=== PATIENT | female | born 1955 | race Caucasian/White ===

== ENCOUNTER → 2019-11-03 | Outpatient (CLI) | payer OTHER ==
--- NOTE | 2019-11-03 20:35 | CONS ---
CONSULTATION DATE OF SERVICE: 11/03/2019 This patient is a 64-year-old lady who [facility] for snoring, awakenings from sleep and sleepiness during the day. HISTORY OF PRESENT ILLNESS/SLEEP-WAKE EVALUATION: Patient's usual sleep schedule is from around 10 p.m. until 6 to 7 a.m. Usually no problems with falling asleep. No TV in bedroom. She sleeps on the back and stomach positions. She wakes up from sleep 2 times with one episode of nocturia. She grinds her teeth, wakes up with a dry mouth, palpitations, gasping for air, restless legs, positive history of sleeptalking. In the morning patient wakes up tired, falling asleep during the day. [place] Sleepiness Scale is 9. She may take a nap during the day, but usually she tries to avoid that; trying to prevent sleepiness by increasing her daytime activity. She is taking 2-3 cups of coffee in the first part of the day. No history of hypnagogic hallucinations at the present time. No history of sleep paralysis or cataplexy. PAST MEDICAL HISTORY: Positive for atrial fibrillation, hypothyroidism, depression. PAST SURGICAL HISTORY: Total hysterectomy, cholecystectomy, toe surgery, bilateral surgery for carpal tunnel syndrome, bilateral surgery for shoulder problems. CURRENT MEDICATIONS: Baby aspirin, Digitek, Mirapex, paroxetine, Synthroid, , calcium supplement, fish oral, multivitamins. SOCIAL HISTORY: Negative for smoking. Alcohol consumption rarely. FAMILY HISTORY: Heart problems, arthritis, snoring, acid reflux, thyroid problems, restless legs. PHYSICAL EXAMINATION: GENERAL: A pleasant lady without distress. VITAL SIGNS: BP 119/80, HR 65, RR 15, height 5 feet 4 inches. Weight 151.8, temperature 97.6, oxygen saturation at room air 96%. HEENT: PERRLA, EOMI. Evaluation of oropharynx showed tongue protrudes midline. Moderately low position of soft palate. Mallampati II to III. NECK: Supple. No JVD. Thyroid is not palpable. Neck measures 14 inches in circumference. LUNGS: Clear to percussion and to auscultation. Good air exchange. No wheezing or rhonchi. HEART: S1, S2 regular. No murmurs, gallops or rubs. ABDOMEN: ABDOMEN: Soft. No tenderness. EXTREMITIES: No clubbing or cyanosis. PHYSICAL THERAPY ASSISTANT INSTRUCTOR: Awake, alert, and oriented X3. Cranial nerves 2 to 7 intact. There is no fasciculation or atrophy. noted. No focal deficits observed. IMPRESSION: 1. Snoring, awakenings from sleep with nocturia, moderately low position of soft palate, sleepiness during the day, patient may take naps; possible obstructive sleep apnea-hypopnea syndrome. 2. Excessive daytime sleepiness. Patient is ready for naps. 3. History of atrial fibrillation. 4. History of depression. 5. History of restless legs. 6. Status post total hysterectomy. 7. Status post cholecystectomy. 8. Status post toe surgery. 9. Status post bilateral surgery for carpal tunnel syndrome. 10.Status post bilateral surgery for shoulder problems. PLAN: 1. Polysomnography for evaluation of patient's breathing during sleep. 2. CPAP/BiPAP titration if sleep study confirms obstructive sleep apnea-hypopnea syndrome. 3. Preferable position during sleep on the side. 4. No driving if patient feels any sleepiness. 5. I will see patient for follow up visit to explain results of testing and following plan. 6. Multiple sleep latency test if sleep study is negative for obstructive sleep apnea- hypopnea syndrome. Thank you very much for referring this patient for consultation. Sincerely, Tong Cedeño MD, PhD, FAASM Diplomat of [place] [employer] [place] [employer] Compensation Advisor of [facility] [place] MMODL / NADIRAN: [phone] /
== END | disposition home or self-care (01) ==
LOC: SLEEP 14:57
PROVIDERS: ATTEND Internal Medicine
DX: G47.10 Hypersomnia, unspecified (principal); R06.83 Snoring; R35.1 Nocturia; I48.91 Unspecified atrial fibrillation; E03.9 Hypothyroidism, unspecified; Z86.79 Personal history of other diseases of the circulatory system; Z86.59 Personal history of other mental and behavioral disorders; Z86.69 Personal history of other diseases of the nervous system and sense organs; Z90.710 Acquired absence of both cervix and uterus; Z90.49 Acquired absence of other specified parts of digestive tract; Z98.890 Other specified postprocedural states; Z79.82 Long term (current) use of aspirin; Z79.899 Other long term (current) drug therapy; Z79.890 Hormone replacement therapy
CPT/HCPCS: 99211

== ENCOUNTER → 2020-10-07 | Outpatient (CLI) | payer OTHER ==
--- NOTE | 2020-10-07 08:53 | MR ---
EXAMINATION TYPE: MR lumbar spine wo con DATE OF EXAM: 10/07/2020 COMPARISON: NONE HISTORY: LBP, LBE radiculopathy x 2 mos TECHNIQUE: T1 and T2 axial and sagittal images of the lumbar spine are submitted. FINDINGS: There is no abnormal signal seen within the visualized spinal cord or paraspinal soft tissu es. At L1-2 there is degenerative disc disease with disc bulging greater laterally to the left mild left- sided foraminal encroachment. No Canal stenosis. At L2-3 there is degenerative disc disease with circumferential disc bulging. Very mild bilateral for aminal encroachment but no canal stenosis or focal herniation. At L3-4 there is degenerative disc disease and broad-based disc bulging centrally. Facet arthropathy and ligamentum flavum hypertrophy noted with mild to moderate bilateral foraminal encroachment and estrellita rderline central stenosis. At L4-5 there is broad-based central disc bulging with mild effacement of thecal sac. Advanced facet arthropathy with ligamentum flavum hypertrophy and mild bilateral foraminal encroachment. Vertebral b chanel hemangioma L4. At L5-S1 there is advanced facet arthropathy. There is mild circumferential disc bulging with no raya l stenosis or foraminal encroachment. IMPRESSION: 1. Multilevel degenerative disc disease with multilevel disc bulging most pronounced at L3-4 and L4-5 . Multilevel foraminal encroachment as discussed above. 2. Left lateral disc bulging L1-L2 with mild left-sided foraminal encroachment.
== END | disposition home or self-care (01) ==
LOC: MERGE 09-27 11:15 → EDBD 09-27 11:15 → RADMRIMAIN 08:04
PROVIDERS: ATTEND Orthopaedic Surgery
DX: M51.16 Intervertebral disc disorders with radiculopathy, lumbar region (principal)
CPT/HCPCS: 72148

== ENCOUNTER → 2020-10-17 | Outpatient (CLI) | payer OTHER ==
--- NOTE | 2020-10-17 12:04 | US ---
EXAMINATION TYPE: US carotid duplex BILAT DATE OF EXAM: 10/17/2020 COMPARISON: NONE CLINICAL HISTORY: R42 Dizziness. EXAM MEASUREMENTS: RIGHT: Peak Systolic Velocity (PSV) cm/sec ----- Right CCA: 69.1 ----- Right ICA: 74.4 ----- Right ECA: 71.1 ICA/CCA ratio: 1.08 RIGHT: End Diastole cm/sec ----- Right CCA: 25.0 ----- Right ICA: 15.8 ----- Right ECA: 15.4 LEFT: Peak Systolic Velocity (PSV) cm/sec ----- Left CCA: 91.7 ----- Left ICA: 92.2 ----- Left ECA: 75.4 ICA/CCA ratio: 1.01 LEFT: End Diastole cm/sec ----- Left CCA: 32.7 ----- Left ICA: 29.3 ----- Left ECA: 12.0 VERTEBRALS (direction of flow): Right Vertebral: Antegrade Left Vertebral: Antegrade Rhythm: Normal Grayscale, color Doppler, spectral Doppler imaging performed of the carotid arteries. Waveform analys is does not show significant stenosis of the internal carotid arteries. No significant stenosis seen. No elevated velocities. IMPRESSION: No hemodynamic significant stenosis of the proximal internal carotid arteries by Doppler criteria, an indirect measurement of carotid stenosis Criteria for Assigning % of Stenosis / Diameter reduction (Estimation based on the indirect measurements of the internal carotid artery velocities (ICA PSV). 1. Normal (no stenosis)=ICA PSV < 125 cm/s: ratio < 2.0: ICA EDV<40 cm/s. 2. Less than 50% stenosis=ICA PSV < 125 cm/s: ratio < 2.0: ICA EDV<40 cm/s. 3. 50 to 69% stenosis=ICA PSV of 125 to 230 cm/s: ration 2.0 ? 4.0: ICA EDV 40-100 cm/s. 4. Greater than 70% stenosis to near occlusion= ICA PSV > 230 cm/s: ratio > 4.0: ICA EDV > 100 cm/s. 5. Near occlusion= ICA PSV velocities may be low or undetectable: variable ratio and ICA EDV. 6. Total occlusion=unable to detect flow.
--- NOTE | 2020-10-17 12:17 | US ---
EXAMINATION TYPE: US abdomen complete DATE OF EXAM: 10/17/2020 COMPARISON: NONE CLINICAL HISTORY: R10.9 Abd pain. epigastric pain EXAM MEASUREMENTS: Liver Length: 10.6 cm Gallbladder Wall: Surgically absent CBD: 0.4 cm Spleen: 9.8 cm Right Kidney: 9.8 x 4.1 x 5.4 cm Left Kidney: 10.4 x 5.6 x 4.4 cm Pancreas: wnl Liver: wnl Gallbladder: Surgically absent CBD: wnl Spleen: wnl Right Kidney: No hydronephrosis or masses seen Left Kidney: No hydronephrosis or masses seen Upper IVC: wnl Abd Aorta: wnl No evident ascites. Kidneys show normal cortical medullary differentiation. IMPRESSION: No evident abnormality. Post cholecystectomy.
== END | disposition home or self-care (01) ==
LOC: RADUSWWP 07:03
PROVIDERS: ATTEND Family Medicine
DX: R10.9 Unspecified abdominal pain (principal); R42 Dizziness and giddiness; Z90.49 Acquired absence of other specified parts of digestive tract
CPT/HCPCS: 76700; 93880

== ENCOUNTER 2020-11-07 13:11 | Day surgery (SDC) | payer OTHER ==
[2020-11-03 13:15] VITALS: BMI 27.4
[~2020-11-07 13:11] MED LIST: LACTATED RINGERS 1,000 ML IV SCH
[2020-11-07 13:46] VITALS: RESP 16; TEMP 97.9
[2020-11-07] MEDS ORDERED: LIDOCAINE 1% (10MG/ML) FOR IV START INTRADERMA ONE (13:49)
[2020-11-07] MEDS ORDERED: LACTATED RINGERS 1,000 ML IV ONE (13:50)
[2020-11-07] MEDS ORDERED: methylPREDNISolone ACETATE 40 MG/ML 1 ML VIAL ONE (13:53)
[2020-11-07] MEDS ORDERED: IOPAMIDOL M200 10 ML VIAL ONE (13:53)
[2020-11-07] MEDS ORDERED: fentaNYL (PF) 50 MCG/ML 2 ML AMP ONE (13:53)
[2020-11-07] MEDS ORDERED: MIDAZOLAM 2 MG/2 ML VIAL ONE (13:53)
--- NOTE | 2020-11-07 14:09 | P.PCN ---
Date of Procedure: 11/07/20 Procedure(s) Performed: PREOPERATIVE DIAGNOSIS: 1-Lumbar radiculopathy . 2-lumbar degenerative disc disease. 3-lumbar spondylosis with lumbar facet arthropathy POSTOPERATIVE DIAGNOSIS: Same as preoperative diagnoses. PROCEDURE 1. Transforaminal epidural steroid injection under fluoroscopic guidance at left L2-3 , L3-4 level. (Fluoroscopy images stored on file in the radiology Department ) 2. Lumbar epidurogram . ANESTHESIA: Local with 1% lidocaine 3 ml , moderate sedation with intravenous Versed 2 mg and fentanyle 50 micrograms. EBL: Minimal PROCEDURE INDICATION: The patient with low back pain and radiculopathy symptoms unresponsive to conservative treatment. PROCEDURE DESCRIPTION / TECHNIQUE: The patient was seen and identified in the preoperative area. Risks, benefits, complications, and alternatives were discussed with the patient. The patient agreed to proceed with the procedure and signed the consent. IV was started, and vital signs were stable. Patient was taken to the OR and time out was completed. The patient was placed in the prone position on procedure table and a pillow was placed under the abdomen to reduce lumbar lordosis. The lumbosacral area was prepped and draped in the usual sterile fashion. Critical pause was taken. Vital signs were closely monitored during the procedure. Conscious sedation was used during the procedure to decrease patient s anxiety. Using oblique fluoroscopy, the chin of the ``Carlos dog at left L2-3 level was identified, and the skin and deeper tissues just below was localized with 1% lidocaine. Subsequently, a 22-gauge 3.5-inch spinal needle was advanced under a tunneled view fluoroscopic guidance just underneath the chin of the `[place] dog at the left L2-3 Under lateral fluoroscopy, the needle was then advanced to the posterior border of the interforaminal space. After negative aspiration of CSF and blood and with no paresthesias, 1 mL Isovue 200 contrast dye was injected excellent epidurogram and outlining of the nerve root Subsequently, 3 mL of block solution containing 40 mg Depo-Medrol and 2 mL of 0.9% normal saline PF was injected. Needle was removed and the same procedure was repeated at the left L3-4 level (s). At the end of the procedure, skin was cleansed, and bandages were applied. COMPLICATIONS:none DISPOSITION / PLANS: The patient was placed in a supine position and transferred to the recovery area in a stable condition for observation. There was no evidence of lower extremity motor or sensory deficit after the procedure. Patient was discharged from the recovery room after meeting discharge criteria. Home discharge instructions were given to the patient by the staff. The patient was reexamined prior to discharge.
[2020-11-07 14:14] VITALS: PULSE 61
--- NOTE | 2020-11-07 14:18 | FL ---
EXAMINATION TYPE: FL guided pain mgmt statistic DATE OF EXAM: 11/07/2020 HISTORY: Fluoroscopy time 9 seconds of fluoroscopy provided. IMPRESSION: 1. Fluoroscopy time.
[2020-11-07 14:32] VITALS: BP 105/69
[2020-11-07] MEDS ORDERED: IV FLUID CONTINUATION 1,000 ML IV ONE (14:34)
== END 2020-11-07 14:49 | disposition home or self-care (01) ==
LOC: ORPAIN 13:11
PROVIDERS: ATTEND Specialist
DX: M51.16 Intervertebral disc disorders with radiculopathy, lumbar region (principal); M47.26 Other spondylosis with radiculopathy, lumbar region
CPT/HCPCS: 64483; 64484; J2250; J1030; J3010; Q9966; 99152

== ENCOUNTER → 2020-12-26 | Day surgery (SDC) | payer OTHER ==
[2020-12-22 13:09] VITALS: BMI 27.4
[~2020-12-26] MED LIST changes: -LACTATED RINGERS 1,000 ML IV SCH; +LIDOCAINE 1% INJ 10MG/ML (20 ML MDV) SQ ONE
[2020-12-26 11:53] VITALS: RESP 16; TEMP 98.1
[2020-12-26 13:04] VITALS: BP 129/72; PULSE 60
[2020-12-26 13:50] LABS: Basophils # (A) 0.1 k/uL (0-0.2); Basophils % (A) 1 %; Eosinophils # (A) 0.2 k/uL (0-0.7); Eosinophils % (A) 3 %; HCT 42.4 % (34.0-46.0); HGB 14.9 gm/dL (11.4-16.0); Lymphocytes # (A) 2.7 k/uL (1.0-4.8); Lymphocytes % (A) 40 %; MCH 30.9 pg (25.0-35.0); MCV 88.1 fL (80.0-100.0); Mean Platelet Volume 7.5; Monocytes # (A) 0.4 k/uL (0-1.0); Monocytes % (A) 6 %; Neutrophils # (A) 3.3 k/uL (1.3-7.7); Neutrophils % (A) 49 %; Platelet Count 248 k/uL (150-450); RBC 4.82 m/uL (3.80-5.40); RDW 12.4 % (11.5-15.5); WBC 6.7 k/uL (3.8-10.6)
[2020-12-26 14:03] LABS: African American GFR (CKD) >90 (>60 ml/min/1.73 sqM); Anion Gap 6 mmol/L; Blood Urea Nitrogen 20 mg/dL (7-17); C Reactive Protein 11.2 mg/L (<10.0); Carbon Dioxide 27 mmol/L (22-30); Chloride 104 mmol/L (98-107); Creatine Kinase 63 U/L (30-135); Non-African American GFR(CKD) 85 (>60 ml/min/1.73 sqM); Sodium 137 mmol/L (137-145)
[2020-12-26 14:18] LABS: Potassium 4.2 mmol/L (3.5-5.1)
[2020-12-26 15:04] LABS: Erythrocyte Sedimentation Rate 7 mm/hr (0-20)
--- NOTE | 2020-12-26 15:06 | IR ---
EXAMINATION TYPE: IR cvc insert >=5 years DATE OF EXAM: 12/26/2020 COMPARISON: NONE CLINICAL HISTORY: Infection Needs long-term intravenous access for antibiotics. PROCEDURE: Hand hygiene obtained with soap and water and alcohol-based hand rub. After informed consent, the skin overlying the left basilic vein was localized with ultrasound and no celia to be compressible and patent. An ultrasound image was obtained and submitted on the patient's c murray. The overlying skin was prepped and draped and Lidocaine was used for local anesthesia. A skin marley was made with a scalpel. Access was gained to the vein under ultrasound guidance with a 21 gau ge needle and a 0.018 inch wire was advanced. Access site was dilated with Peel-Away sheath and cath eter tailored to the appropriate length and advanced such that the distal tip is at the cavoatrial ju nction. Spot image was obtained verifying placement. Catheter was fixed to the skin and a sterile d ressing was placed following hemostasis. Catheter was aspirated and flushed with saline. Patient wa s discharged in stable condition without complication. Maximal barrier technique is utilized. Ultras ound image is documented on the chart. Ultrasound used with sterile technique. Fluoro time and fluoroscopic images submitted to document procedure: 25 intraoperative images documen t the procedure, 0.1 minutes fluoroscopy time IMPRESSION: STATUS POST ULTRASOUND AND FLUOROSCOPIC GUIDED PICC LINE PLACEMENT, READY FOR USE. THIS PROCEDURE WAS PERFORMED BY THE UNDERSIGNED.
== END ==
LOC: CATHCVL 11:32
PROVIDERS: ATTEND Radiology Diagnostic Radiology
DX: M86.8X7 Other osteomyelitis, ankle and foot (principal); I48.91 Unspecified atrial fibrillation; Z80.9 Family history of malignant neoplasm, unspecified; I49.9 Cardiac arrhythmia, unspecified; M19.90 Unspecified osteoarthritis, unspecified site; F32.9 Major depressive disorder, single episode, unspecified; E03.9 Hypothyroidism, unspecified; Z79.890 Hormone replacement therapy; Z79.899 Other long term (current) drug therapy; Z79.82 Long term (current) use of aspirin
CPT/HCPCS: 36573; 80051; 85652; 82565; 82550; 84520; 85025; 86140; C1751; C1769; J2001; J0878

== ENCOUNTER → 2021-01-03 | Outpatient (CLI) | payer OTHER ==
[2021-01-03 10:11] VITALS: BP 87/58; PULSE 59; RESP 16; TEMP 97.6
--- NOTE | 2021-01-03 10:37 | P.PN ---
Subjective Progress Note Date: 01/03/21 This is 65 years old female with a chronic history of severe low back pain with radiation to the lower extremity, she is diagnosed with lumbar radiculopathy lumbar bulging disc disease, lumbar spondylosis with lumbar facet arthropathy, previously we have done left transforaminal epidural steroid injection, and she is currently complaining of severe localized low back pain with radiation to the buttock area bilaterally, it's more prominent on the left side, the pain increased with any activity or sitting or standing, and changing position, it's constant, she denies any motor or sensory deficit, she denies any change in the bowel movement or urination. Objective - Vital Signs Vital signs: Vital Signs Temp 97.6 F 01/03/21 10:07 Pulse 59 L 01/03/21 10:07 Resp 16 01/03/21 10:07 BP 87/58 01/03/21 10:07 Pulse Ox 93 L 01/03/21 10:07 - Exam Physical Examinations : -Constitutiona : Cooperative , not in acute distress . -HEENT : nech : supple , no Lymphadenopathy , normal thyroid size . : eyes : no ptosis , no icterus, no photophobia . - neurologic : Cranial nerve II to XII intact , no focal neurological deffecit . -psychatric : alert , oriented X 3 , appropriate affect , intact judgment and insight . -Lymphatic : no Lymphadenopathy . - musculoskeltal : Lumber spine moter stegnth lower extremities ,thigh and legs 5/5 Right side , 5/5 Left side deep tendon reflexes : normal Knee Jerk , normal ankle Jerk lumber facet Loading Test =positive Right , positive Left Range of motion of the lumbar spine Flexion 60 degrees, extension 30 degrees strait leg raising test = negative bilaterally Fabere test= negative bilaterally . Sever tenderness over the Sacroiliac joint on the Right , and Left sides Gaenslen test= positive right ,and positive left . Seated flexion test= positive right ,and positive Left . Distraction test= positive bilaterally Sacroiliac compression test= positive bilaterally. MRI of the lumbar spine multilevel lumbar bulging disc disease multilevel lumbar Assessment and Plan Plan: Assessment and plan=1-bilateral sacroiliitis. 2-lumbar degenerative disc disease. 3-lumbar spondylosis and lumbar facet arthropathy without myelopathy. 4-umber radiculopathy. Patient could benefit from bilateral sacroiliac joint steroid injection under fluoroscopy guidance. - PQRS measures = - Patient's medications are documented in the chart. -Tobacco use is negative and counseling.Given. -Patient's has not received pneumococcal vaccine. -Advanced care planning discussed, patient not eligible. -Opiate contract not signed. -Pain positive and follow-up visit/procedure is scheduled. -Patient's blood pressure measured [ 120/87 ] , and documented in the record ,and patient will follow up with the primary care. -Patient's weight was measured and body mass index [ ] above the normal limits and counseling was done. and patient instructed to follow-up with the primary care physician. -Patient was not identified as an unhealthy alcohol user Time with Patient: Less than 30
== END ==
LOC: PNWHC3 09:18
PROVIDERS: ATTEND Specialist
DX: M47.26 Other spondylosis with radiculopathy, lumbar region (principal); M51.36 Other intervertebral disc degeneration, lumbar region; M46.1 Sacroiliitis, not elsewhere classified
CPT/HCPCS: 99211

== ENCOUNTER 2021-03-06 11:08 | Day surgery (SDC) | payer OTHER ==
[2021-03-02 11:45] VITALS: BMI 27.4
[~2021-03-06 11:08] MED LIST changes: +LACTATED RINGERS 1,000 ML IV SCH; -LIDOCAINE 1% INJ 10MG/ML (20 ML MDV) SQ ONE
[2021-03-06 11:31] VITALS: TEMP 97
[2021-03-06] MEDS ORDERED: ROPIVACAINE 5MG/ML 20ML VIAL ONE (12:30)
[2021-03-06] MEDS ORDERED: fentaNYL (PF) 50 MCG/ML 2 ML AMP ONE (12:30)
[2021-03-06] MEDS ORDERED: MIDAZOLAM 2 MG/2 ML VIAL ONE (12:30)
[2021-03-06] MEDS ORDERED: methylPREDNISolone ACETATE 40 MG/ML 1 ML VIAL ONE (12:30)
--- NOTE | 2021-03-06 12:43 | P.PCN ---
Date of Procedure: 03/06/21 Procedure(s) Performed: Procedure= bilateral sacroiliac joints steroid injection under fluoroscopy guidance (fluoroscopy image stored on file in the radiology Department ) Preoperative diagnosis= 1-sacroiliitis 2-lumbar degenerative disc disease 3- lumbar spondylosis with facet arthropathy. 4-lumbar radiculopathy Postoperative diagnosis=Same as preop Diagnosis . Complication = none Condition= stable Anesthesia= moderate sedation with intravenous Versed 2 mg , and fentanyl 100 micrograms . Indication for the procedure= patient complaining of low back pain , examination was positive for severe tenderness over the sacroiliac joints bilaterally and patient diagnosed with sacroiliitis, for this reason she was good candidate for sacroiliac joint steroid injection. Description of the procedure= procedure risk and benefits discussed with the patient, including but not limited, risk of infection and bleeding, and ALLERGIC reaction to the medication and not complete pain relief and patient agreed with the preceding patient taken to the operating room, placed in prone position or standard monitors applied to the patient then after induction of anesthesia back prepped with chlorhexidine 3 times , Then under strict sterile technique, first I did the right sacroiliac joint the which was identified under fluoroscopy guidance been local infiltration of the skin and subcu interstitial with lidocaine 1% then 22-gauge Quincke Needle advanced slowly under fluoroscopy and placed in the right sacroiliac joint needle placement confirmed with AP and oblique and lateral view and after appropriate needle placement confirmed and after negative aspiration, or heme , then Ropivacaine 0.5% 3 mL, and 40 mg of Depo-Medrol mixed together and injected in the right sacroiliac joint after negative aspiration patient tolerated the procedure well without any complication. Then the left sacroiliac joint steroid injection done under strict sterile technique local infiltration of the skin and subcu interstitial at the location of the left sacroiliac joint then a 22-gauge Quincke Needle advanced slowly under fluoroscopy time placed in the left sacroiliac joint, needle placement confirmed with AP and oblique and lateral view then after appropriate needle placement confirmed and after negative aspiration 0.5% ropivacaine 3 mL and 40 mg of Depo-Medrol injected in the left sacroiliac joint after negative aspiration patient tolerated the procedure well that any complications and she will follow up in clinic 3 weeks
[2021-03-06] MEDS ORDERED: IV FLUID CONTINUATION 1,000 ML IV ONE (12:46)
[2021-03-06 12:50] VITALS: RESP 16
--- NOTE | 2021-03-06 13:13 | FL ---
EXAMINATION TYPE: FL guided pain mgmt statistic DATE OF EXAM: 03/06/2021 HISTORY: Fluoroscopy time 3 seconds of fluoroscopy provided. IMPRESSION: 1. Fluoroscopy time.
[2021-03-06 13:49] VITALS: BP 101/65; PULSE 53
== END 2021-03-06 13:50 | disposition home or self-care (01) ==
LOC: ORPAIN 11:08
PROVIDERS: ATTEND Specialist
DX: M46.1 Sacroiliitis, not elsewhere classified (principal); M51.16 Intervertebral disc disorders with radiculopathy, lumbar region; M47.26 Other spondylosis with radiculopathy, lumbar region; Z90.710 Acquired absence of both cervix and uterus; Z79.82 Long term (current) use of aspirin
CPT/HCPCS: 27096; J2250; J1030; J3010; J2795

== ENCOUNTER → 2021-04-23 | Outpatient (CLI) | payer OTHER ==
[2021-04-23 07:45] VITALS: BP 109/75; PULSE 65; RESP 18; TEMP 97.8
--- NOTE | 2021-04-23 08:21 | P.PN ---
Subjective Progress Note Date: 04/23/21 This is a 65-year-old lady with history of chronic lower back pain mostly on the left side today with radiation to the posterior aspect of the left thigh to the midthigh area. The patient denies any paresthesia in the lower extremities or any weakness. Her pain has been getting worse lately. She had sacroiliac joint steroid injection bilaterally which gave her very good relief of pain at least 80% as she states. At this time she feels pain only on the left side of her lower back. Patient denies new-onset weakness, bowel/bladder incontinence, or any other signs or symptoms of cauda equina syndrome. There are no signs of acute intoxication, and no indications of medication diversion or overuse. In addition to above, 13-point review of systems is also negative for chest pain, shortness of breath, changes in vision, changes in hearing, new onset weakness, abdominal pain, diarrhea, extreme fatigue, malaise, fever, skin changes, homicidal or suicidal ideation, or bowel or bladder incontinence. Vital Signs: Reviewed in EMR Gen: AAOx3, NAD HEENT: PERRLA,hearing grossly normal Pulm: resp unlabored Neck: supple, trachea midline Neuro exam of the lower extremities: Normal muscle strength in the lower extremities bilaterally Straight leg raising test: Negative bilaterally Tashi's test: Range of motion of the lumbar spine: Facet loading test: Tenderness in the paravertebral musculature: Positive tenderness around the left sacroiliac joint Neuro: CN II-XII grossly intact, Imaging: Reviewed in EMR/chart Assessment: Left sacroiliitis Lumbar DDD Lumbar spondylosis without myelopathy Plan: 1. Explanation: Opioid and psychological risk scores were reviewed. Diagnoses, prognoses, and multiple treatment options including but not limited to physical therapy, interventional therapies, adjuvant medical therapies, narcotic medication therapies, and surgery were discussed with the patient and all questions were answered to the patient's satisfaction. 2. Opioid agreement: Signed with the patient and the patient is warned not to use opioids while driving or before driving and not to combine opioids with benzodiazepines or alcohol. 3. Counseling: The patient was counseled extensively on SMOKING CESSATION, BODY MASS INDEX, EXERCISE. Specifically, the patient was instructed regarding the importance of smoking cessation, obesity, and exercise in the context of both chronic pain and overall health. 4. Procedures: Scheduled for the second sacroiliac joint steroid injection on the left side. 5. Consultations: None 6. Investigations: None 7. Medications: None prescribed 8. Disposition: Return to clinic in 4 weeks and to the above-mentioned procedure as soon as possible 9. Maps were reviewed and were appropriate. Objective - Vital Signs Vital signs: Vital Signs Temp 97.8 F 04/23/21 07:41 Pulse 65 04/23/21 07:41 Resp 18 04/23/21 07:41 BP 109/75 04/23/21 07:41 Pulse Ox 99 04/23/21 07:41 Intake & Output 04/22/21 04/23/21 04/23/21 18:59 06:59 18:59 Weight 72.575 kg
== END ==
LOC: PNWHC3 07:26
PROVIDERS: ATTEND Anesthesiology
DX: M46.1 Sacroiliitis, not elsewhere classified (principal); M47.816 Spondylosis without myelopathy or radiculopathy, lumbar region; M51.36 Other intervertebral disc degeneration, lumbar region
CPT/HCPCS: 99211

== ENCOUNTER 2021-05-01 06:47 | Day surgery (SDC) | payer OTHER ==
[2021-05-01 07:24] VITALS: TEMP 97.3
[2021-05-01] MEDS ORDERED: LACTATED RINGERS 1,000 ML IV ONE (07:27)
[2021-05-01] MEDS ORDERED: ROPIVACAINE 5MG/ML 20ML VIAL ONE (07:53)
[2021-05-01] MEDS ORDERED: TRIAMCINOLONE ACETONIDE 40 MG/ML 1 ML VIAL ONE (07:53)
[2021-05-01] MEDS ORDERED: MIDAZOLAM 2 MG/2 ML VIAL ONE (07:53)
[2021-05-01] MEDS ORDERED: fentaNYL (PF) 50 MCG/ML 2 ML AMP ONE (07:53)
--- NOTE | 2021-05-01 08:05 | P.PCN ---
Date of Procedure: 05/01/21 Surgeon: Kinjal Velásquez Pathology: none sent Condition: stable Disposition: PACU Description of Procedure: Preoperative diagnoses= sacroiliac joint dysfunction and sacroiliitis on the le ft side Postoperative diagnoses= same as preoperative diagnosis. Procedure= Left sacroiliac joint steroid injection under fluoroscopic guidance. Anesthesia= local anesthesia with lidocaine 1% and IV moderate conscious sedation with fentanyl and Versed Estimated blood loss=minimal. Procedure indication= the patient had a history of severe chronic low back pain, diagnosed with sacroiliitis and lumbar sacral facet arthropathy unresponsive to conservative treatment. Procedure description= the patient was seen and identified in the preoperative holding area, risks and benefits and alternative of the procedure and possible complications discussed with the patient, patient signed the consent. an IV was started, and vital signs were monitored and were stable throughout the procedure, patient was placed in the prone position or table and the lumbosacral area was prepped and draped with a sterile fashion, vital signs were closely monitored during the procedure.The left sacroiliac joint was identified on the AP view of fluoroscopy then the C-arm was tilted to the contralateral oblique position to superimpose the anterior and posterior joint lines on each other and to have a unified joint line with the target point at the inferior one third of this line. I used 22-gauge 3-1/2 inch Quincke spinal needle for this procedure and after getting into the sacroiliac joint I injected 40 mg of Kenalog +2 MLS of Ropivacaine 0.5%. Patient tolerated the procedure well without any complication, The patient returned to supine position after the back was cleaned and a Band- Aid applied, the patient transported to recovery room in stable condition and he was monitored for 30 minutes before she was discharged home in stable condition . patient will follow up with the pain clinic in a few weeks. A copy of the needle placement was saved to the C-arm machine.
[2021-05-01] MEDS ORDERED: IV FLUID CONTINUATION 1,000 ML IV ONE ×2 (08:10)
[2021-05-01 08:14] VITALS: PULSE 55
[2021-05-01 08:53] VITALS: BP 100/66; RESP 18
--- NOTE | 2021-05-01 10:08 | FL ---
EXAMINATION TYPE: FL guided pain mgmt statistic DATE OF EXAM: 05/01/2021 HISTORY: Fluoroscopy time 6 seconds of fluoroscopy provided. IMPRESSION: 1. Fluoroscopy time.
== END 2021-05-01 09:05 | disposition home or self-care (01) ==
LOC: ORPAIN 06:47
PROVIDERS: ATTEND Anesthesiology
DX: G89.29 Other chronic pain (principal); M46.1 Sacroiliitis, not elsewhere classified; M53.3 Sacrococcygeal disorders, not elsewhere classified; I48.91 Unspecified atrial fibrillation; Z79.82 Long term (current) use of aspirin; Z90.710 Acquired absence of both cervix and uterus
CPT/HCPCS: 27096; J2250; J3301; J3010; J2795

== ENCOUNTER → 2021-05-28 | Outpatient (CLI) | payer OTHER ==
[2021-05-28 13:57] VITALS: BP 104/72; PULSE 62; RESP 18; TEMP 98.3
--- NOTE | 2021-05-28 14:07 | P.PAINPG ---
Subjective Progress Note Date: 05/28/21 This is a 65-year-old lady with history of chronic lower back pain mostly on the left side today with radiation to the posterior aspect of the left thigh to the midthigh area. The patient denies any paresthesia in the lower extremities or any weakness. We have been managing her with sacroiliac joint injections. In the past she was getting about bilaterally which is giving her very good pain relief in the form of at least 80%. In the last visit she mentioned that there is pain on her left side only and we repeated a sacroiliac joint injection on the left side. Patient notes that she is getting great relief from her procedures. She still experiences some pain in her left lower extremity and back but overall this is manageable. She'll follow up as needed. Patient denies new-onset weakness, bowel/bladder incontinence, or any other signs or symptoms of cauda equina syndrome. There are no signs of acute intoxication, and no indications of medication diversion or overuse. In addition to above, 13-point review of systems is also negative for chest pain, shortness of breath, changes in vision, changes in hearing, new onset weakness, abdominal pain, diarrhea, extreme fatigue, malaise, fever, skin changes, homicidal or suicidal ideation, or bowel or bladder incontinence. Vital Signs: Reviewed in EMR Gen: AAOx3, NAD HEENT: PERRLA,hearing grossly normal Pulm: resp unlabored Neck: supple, trachea midline Neuro exam of the lower extremities: Normal muscle strength in the lower extremities bilaterally Straight leg raising test: Negative bilaterally Tenderness in the paravertebral musculature: Positive tenderness around the left sacroiliac joint Neuro: CN II-XII grossly intact, Imaging: Reviewed in EMR/chart Assessment: Left sacroiliitis Lumbar DDD Lumbar spondylosis without myelopathy Plan: She will follow up as needed for injections in the future. She is has had 3 steroid injections this year so we discussed limiting her injections. She is understanding. I have spent 25 minutes on patient care today. The time was used to review the medical records including relevant urine studies and prescription history, review of the available imaging, evaluation and examination of the patient, coordination of care with the medical staff and if applicable referring physicians, as well as creation of the medical record.. PQRS Measure Charge Sheet PQRS Narrative: Pain Intensity [Back] 4 Home Medications: Ambulatory Orders Aspirin [Adult Low Dose Aspirin EC] 81 mg PO DAILY 11/03/20 Estradiol [Estrace] 1 mg PO DAILY 11/03/20 Levothyroxine Sodium [Synthroid] 50 mcg PO DAILY 11/03/20 Metoprolol Succinate (ER) [Toprol Xl] 25 mg PO DAILY 11/03/20 Multivitamins, Thera [Multivitamin (formulary)] 1 tab PO DAILY 11/03/20 [place]-3 Fatty Acids/Fish Oil [Fish Oil 1,000 mg Softgel] 1 each PO DAILY 11/03/20 PARoxetine HCL 20 mg PO DAILY 11/03/20 Pramipexole [Mirapex] 0.5 mg PO HS 11/03/20 Controlled Substance Measures - Controlled Substance Measures Is patient prescribed a controlled substance at discharge?: No
== END ==
LOC: PNWHC3 13:33
PROVIDERS: ATTEND Anesthesiology
DX: M46.1 Sacroiliitis, not elsewhere classified (principal); M51.36 Other intervertebral disc degeneration, lumbar region; M47.816 Spondylosis without myelopathy or radiculopathy, lumbar region
CPT/HCPCS: 99211

== ENCOUNTER → 2021-06-26 | Outpatient (CLI) | payer OTHER ==
--- NOTE | 2021-06-28 11:43 | MM ---
Reason for exam: screening (asymptomatic). Last mammogram was performed 1 year ago. History: Patient is postmenopausal. Family history of breast cancer in mother at age 40 and breast cancer in 2 maternal aunts. Benign excisional biopsy of the right breast, 1979. Took hormonal contraceptives for 2 years. Taking estrogen beginning at age 53. Physical Findings: A clinical breast exam by your physician is recommended on an annual basis and results should be correlated with mammographic findings. MG Screening Mammo w CAD Bilateral CC and MLO view(s) were taken. Prior study comparison: June 16, 2020, mammogram, performed at [facility]. June 07, 2019, mammogram, performed at [facility]. The breast tissue is heterogeneously dense. This may lower the sensitivity of mammography. No significant changes when compared with prior studies. ASSESSMENT: Benign, BI-RAD 2 RECOMMENDATION: Routine screening mammogram of both breasts in 1 year.
== END | disposition home or self-care (01) ==
LOC: RADMAMWWP 15:12
PROVIDERS: ATTEND Obstetrics & Gynecology
DX: Z12.31 Encounter for screening mammogram for malignant neoplasm of breast (principal)
CPT/HCPCS: 77067

== ENCOUNTER 2021-08-02 06:27 | Day surgery (SDC) | payer OTHER ==
[2021-07-31 16:31] VITALS: BMI 27.4
[2021-08-02 07:33] VITALS: TEMP 96.9
[2021-08-02] MEDS ORDERED: TRIAMCINOLONE ACETONIDE 40 MG/ML 1 ML VIAL ONE (08:13)
[2021-08-02] MEDS ORDERED: ROPIVACAINE 5MG/ML 20ML VIAL ONE (08:13)
[2021-08-02] MEDS ORDERED: MIDAZOLAM 2 MG/2 ML VIAL ONE (08:13)
--- NOTE | 2021-08-02 08:28 | P.PCN ---
Date of Procedure: 08/02/21 Surgeon: Kinjal Velásquez Pathology: none sent Condition: stable Disposition: PACU Description of Procedure: PREOPERATIVE DIAGNOSIS : 1- Lumbar spondylosis with Facet Arthropathy without myelopathy . 2- Lumber degenerative disc disease POSTOPERATIVE DIAGNOSIS: 1- Lumbar spondylosis with Facet Arthropathy without myelopathy . 2- Lumber degenerative disc disease PROCEDURE: Diagnostic left L4 -5 , and L5-S1 medial branch block under fluoroscopy Physician: Kinjal Velásquez MD ANESTHESIA: Local with 1% lidocaine; IV moderate conscious sedation with Versed 2 mg . EBL: Negligible COMPLICATION: None. PROCEDURE INDICATION: Chronic low back pain secondary to Facet arthropathy unresponsive to conservative treatment. PROCEDURE DESCRIPTION: the patient was seen and identified in the preop holding area , risks and benefits and possible complications of the procedure and alternatives were discussed with the patient, and the patient agreed to proceed with the procedure and signed the consent. IV was started and vital signs monitored during the procedure and fluoroscopy was used to maximize the benefit and accuracy of the needle placement, sedation was given to decrease patient anxiety, patient was taken to the procedure room and placed in prone position vital signs monitored. The patient was brought into the procedure room and placed in prone position. Skin was prepped with Chloraprep and draped in a sterile manner. Lidocaine 1% was used to numb the skin up at the target points that were chosen as follows: at the L5-S1 level which corresponds to the dorsal ramus of L5 the target points were at the superior medial aspect of the sacral ala on each side of the spine on the AP view of fluoroscopy, and for the L3 and L4 medial branches the target points were the connection between the transverse process and the superior articular process of L3, L4 and L5 respectively on the oblique views of fluoroscopy. I used 22-gauge 3-1/2 inch Quincke spinal needles for this procedure and after contacting bone at the target points mentioned above I injected 1 mL of a mixture of Kenalog 40 mg +2 MLS of Ropivacaine 0.5% PF . Patient tolerated procedure well. At the end of the procedure the needles removed and a bandage applied after the skin was cleaned the cleaning solution. patient was then taken to the recovery room in stable condition and monitored in the recovery room for 20-30 minutes and discharged home in stable condition after discharge criteria met . A copy of the needle placement picture was saved to the C-arm machine.
[2021-08-02] MEDS ORDERED: IV FLUID CONTINUATION 1,000 ML IV ONE (08:34)
[2021-08-02 08:39] VITALS: RESP 16
--- NOTE | 2021-08-02 08:43 | FL ---
EXAMINATION TYPE: FL guided pain mgmt statistic DATE OF EXAM: 08/02/2021 CLINICAL HISTORY: Low back pain. TECHNIQUE: Fluoroscopy. COMPARISON: None. FINDINGS: Fluoroscopic guidance was provided during pain relief procedure performed by Dr. Velásquez . A total of 7 seconds of fluoroscopic time was utilized during the procedure and two spot images are acquired. Images acquired shows needle localization at several levels in the lower lumbar spine. IMPRESSION: As Above.
[2021-08-02 08:52] VITALS: BP 110/75; PULSE 52
== END 2021-08-02 09:10 | disposition home or self-care (01) ==
LOC: ORPAIN 06:27
PROVIDERS: ATTEND Anesthesiology
DX: G89.29 Other chronic pain (principal); M47.816 Spondylosis without myelopathy or radiculopathy, lumbar region; M51.36 Other intervertebral disc degeneration, lumbar region; I48.91 Unspecified atrial fibrillation; Z79.82 Long term (current) use of aspirin; Z79.899 Other long term (current) drug therapy
CPT/HCPCS: 64493; 64494; J2250; J3301; J2795

== ENCOUNTER → 2021-09-11 | Day surgery (SDC) | payer MEDICARE, OTHER ==
[~2021-09-11] MED LIST changes: -LACTATED RINGERS 1,000 ML IV SCH; +MIDAZOLAM 2 MG/2 ML VIAL ONE; +ROPIVACAINE 5MG/ML 20ML VIAL ONE; +TRIAMCINOLONE ACETONIDE 40 MG/ML 1 ML VIAL ONE
[2021-09-11 12:51] VITALS: TEMP 97.7
[2021-09-11] MEDS: LACTATED RINGERS 1,000 ML IV SCH ×2 (12:59→13:01)
--- NOTE | 2021-09-11 13:03 | P.PCN ---
Date of Procedure: 09/11/21 Pathology: none sent Condition: stable Disposition: PACU Description of Procedure: PREOPERATIVE DIAGNOSIS : 1- Lumbar spondylosis with Facet Arthropathy without myelopathy . 2- Lumber degenerative disc disease POSTOPERATIVE DIAGNOSIS: 1- Lumbar spondylosis with Facet Arthropathy without myelopathy . 2- Lumber degenerative disc disease PROCEDURE: Diagnostic left L4 -5 , and L5-S1 medial branch block under fluoroscopy Physician: Kinjal Velásquez MD ANESTHESIA: Local with 1% lidocaine; IV moderate conscious sedation with Versed 2 mg . EBL: Negligible COMPLICATION: None. PROCEDURE INDICATION: Chronic low back pain secondary to Facet arthropathy unresponsive to conservative treatment. PROCEDURE DESCRIPTION: the patient was seen and identified in the preop holding area , risks and benefits and possible complications of the procedure and alternatives were discussed with the patient, and the patient agreed to proceed with the procedure and signed the consent. IV was started and vital signs monitored during the procedure and fluoroscopy was used to maximize the benefit and accuracy of the needle placement, sedation was given to decrease patient anxiety, patient was taken to the procedure room and placed in prone position vital signs monitored. The patient was brought into the procedure room and placed in prone position. Skin was prepped with Chloraprep and draped in a sterile manner. Lidocaine 1% was used to numb the skin up at the target points that were chosen as follows: at the L5-S1 level which corresponds to the dorsal ramus of L5 the target points were at the superior medial aspect of the sacral ala on each side of the spine on the AP view of fluoroscopy, and for the L3 and L4 medial branches the target points were the connection between the transverse process and the superior articular process of L3, L4 and L5 respectively on the oblique views of fluoroscopy. I used 22-gauge 3-1/2 inch Quincke spinal needles for this procedure and after contacting bone at the target points mentioned above I injected 1 mL of a mixture of Kenalog 40 mg +2 MLS of Ropivacaine 0.5% PF . Patient tolerated procedure well. At the end of the procedure the needles removed and a bandage applied after the skin was cleaned the cleaning solution. patient was then taken to the recovery room in stable condition and monitored in the recovery room for 20-30 minutes and discharged home in stable condition after discharge criteria met . A copy of the needle placement picture was saved to the C-arm machine.
[2021-09-11 13:23] VITALS: RESP 17
[2021-09-11 13:33] VITALS: BP 109/75; PULSE 60
--- NOTE | 2021-09-11 14:29 | FL ---
Fluoroscopy HISTORY: Pain 6 seconds fluoroscopy time supplied to the referring clinician. 2 intraoperative C-arm images docume nt the procedure. See dictated report from anesthesia.
== END ==
LOC: ORPAIN 12:33
PROVIDERS: ATTEND Anesthesiology
DX: M47.816 Spondylosis without myelopathy or radiculopathy, lumbar region (principal); M51.36 Other intervertebral disc degeneration, lumbar region
CPT/HCPCS: 62323; J2250; J3301; J2795; 64493; 64494; 99152

== ENCOUNTER 2021-11-16 11:33 | Day surgery (SDC) | payer MEDICARE, OTHER ==
[2021-11-15 08:53] VITALS: BMI 28.8
[2021-11-16] MEDS ORDERED: LACTATED RINGERS 1,000 ML IV SCH (11:46)
[2021-11-16 12:08] VITALS: TEMP 97.7
[2021-11-16] MEDS ORDERED: MIDAZOLAM 2 MG/2 ML VIAL ONE (12:32)
[2021-11-16] MEDS ORDERED: ROPIVACAINE 5MG/ML 20ML VIAL ONE (12:32)
[2021-11-16] MEDS ORDERED: fentaNYL (PF) 50 MCG/ML 2 ML AMP ONE (12:32)
[2021-11-16] MEDS ORDERED: methylPREDNISolone ACETATE 40 MG/ML 1 ML VIAL ONE (12:32)
--- NOTE | 2021-11-16 12:52 | P.PCN ---
Date of Procedure: 11/16/21 Procedure(s) Performed: PREOPERATIVE DIAGNOSIS: 1-Lumbar Spondylosis with Facet Arthropathy without myelopathy. 2- Lumber degenerative disc disease. POSTOPERATIVE DIAGNOSIS: 1- Lumbar Spondylosis with Facet Arthropathy without myelopathy. 2- Lumber degenerative disc disease. PROCEDURES : Left Radiofrequency thermocoagulation, L3 , L4 , and L5 medial branch, with fluoroscopic guidance (fluoroscopy images available in the radiology department) ( to denervate the facet joint at left L4-5 ,and L5-S1 levels ). ANESTHESIA: Monitored anesthesia care as per anesthesia department . EBL: Minimal PROCEDURE INDICATION: The patient with low back pain secondary to lumbar facet arthropathy who had more than 50% relief of her pain with previous diagnostic lumbar medial branch block with bupivacaine. PROCEDURE DESCRIPTION / TECHNIQUE: The patient was seen and identified in the preoperative area. Risks, benefits, complications, including but not limited to risk of infection ,bleeding , allergic reactions to the medications and no complete pain releife , and alternatives were discussed with the patient, the patient agreed to proceed with the procedure and signed the consent. IV was started. Vital signs remained stable throughout the procedure. Patient was taken to the OR and time out was completed. The patient was placed in the prone position on the procedure table. The lumber area was prepped and draped in the usual sterile fashion. . Vital signs were closely monitored during the procedure .IV sedation was used during the procedure to decrease patients anxiety. Using AP and then oblique fluoroscopy, the ``eye of the Carlos dog corresponding to the connection between the superior and transverse articular processes of left L3, L4, and L5 were identified, marked, and localized with 1% lidocaine. Subsequently, a 18 [id number] radiofrequency cannula with a 10-mm active tip was advanced guided by fluoroscopy to each of the``eyes of the Carlos dog at left L3, L4, and L5. Each site then underwent sensory testing at 50 Hz and 0 to 1 volt and motor testing at 2.5 Hz and 0 to 3 volt with local stimulation, but no radicular symptoms down the legs. Thereafter each sites underwent radiofrequency thermocoagulation at 80 degrees celsius for 90 seconds after injecting 0.5 ml of PF Ropivacaine 1ml, then after the thermocoagulation done , 1 ml of the block solution containing Depo-Medrol 20 mg and 3 ml of Ropivacaine 0.5% was injected at the left L3 , L4 , and L5 , levels after negative aspiration of CSF and blood and with no paresthesias. Cannulas were retracted while injecting lidocaine 1% until the needle is out. . At the end of the procedure, the skin was cleansed and bandages were applied. COMPLICATIONS: No acute complications. DISPOSITION / PLANS: The patient was placed in a supine position and transferred to the recovery area in a stable condition for observation and was discharged from the recovery room after meeting discharge criteria. Home discharge instructions given to the patient by the staff. The patient was reexamined prior to discharge. The patient will schedule a follow up in the clinic in 2-4 weeks.
--- NOTE | 2021-11-16 12:57 | FL ---
EXAMINATION TYPE: FL guided pain mgmt statistic DATE OF EXAM: 11/16/2021 HISTORY: Fluoroscopy time 12 seconds of fluoroscopy provided. IMPRESSION: 1. Fluoroscopy time.
[2021-11-16] MEDS ORDERED: IV FLUID CONTINUATION 1,000 ML IV ONE (12:58)
[2021-11-16 13:19] VITALS: BP 100/60; PULSE 84; RESP 18
== END 2021-11-16 13:34 | disposition home or self-care (01) ==
LOC: ORPAIN 11:33
PROVIDERS: ATTEND Specialist
DX: M47.816 Spondylosis without myelopathy or radiculopathy, lumbar region (principal); M51.36 Other intervertebral disc degeneration, lumbar region; I48.0 Paroxysmal atrial fibrillation; E07.9 Disorder of thyroid, unspecified; G25.81 Restless legs syndrome; F32.A Depression, unspecified; Z79.890 Hormone replacement therapy; Z79.899 Other long term (current) drug therapy
CPT/HCPCS: 64635; 64636; J2250; J1030; J3010; J2795

== ENCOUNTER → 2021-12-05 | Outpatient (CLI) | payer MEDICARE, OTHER ==
--- NOTE | 2021-12-05 14:40 | P.PN ---
Subjective Progress Note Date: 12/05/21 Principal diagnosis: A 66 yr old female with a history of severe and chronic low back pain secondary to lumbar degenerative disc diseases and lumbar spondylosis with facet arthropathy presents today for evaluation status post left RFA of L4-L5, L5-S1. Patient states she experienced 75% pain relief status post procedure. Pain level is currently at 4 out of 10 in intensity, dull, achy in the lower back with radiation of tingling in the feet bilaterally occasionally. Pain is provoked by sitting in one position for periods of 45 minutes or more. Pain is alleviated with application of ice, physical therapy in 2020, chiropractic treatment one time, stretching, massage, repositioning and rest. Interventional pain procedures completed include left RFA L4-L5, L5-S1 Patient is currently on DENIES. Patient denies any side effects of the medication(s), denies excessive cherelle wsiness or sleepiness, denies suicidal ideation and reports that the current pain medication is helping to control the pain and improve activities of daily living. Patient denies any motor or sensory deficits. Patient denies any fever or night sweats, denies any change in the bowel movements or urination. Physical Examination: -Constitutional: Cooperative. Not in acute distress . -HEENT: Neck is supple. No lymphadenopathy. No thyromegaly. Normal thyroid size. Eyes: No ptosis , no icterus, no photophobia. ENT: No auditory deficits. Normal oropharynx. No Thrush. - Respiratory: Chest clear to auscultations bilaterally. No wheezing. No rhonchi. - Cardiovascular: Regular rate and rhythm. S1 / S2 , no S3 , no S4. - Gastrointestinal: Abdomen soft no tenderness. Bowel sounds positive in all four quadrants. No organomegaly. - Genitourinary: Deferred. - Neurologic: Cranial nerve II to XII intact. No focal neurological deficits. - Psychatric: Alert & oriented x 3. Matching mood & appropriate affect. Judgment and insight intact. - Lymphatic: No Lymphadenopathy. - Musculoskeletal: Cervical spine: Muscle bulk/ tone/ strength in the bilateral upper extremities normal. Facet loading test cervical area positive. Lumbar spine: Motor bulk/ tone/ strength lower extremities , thigh and legs : 5/5 Deep tendon reflexes : Normal Knee Jerk. Normal Ankle Jerk . Vertebral body tenderness to palpation over Lumbar Facet Loading Test positive over L L4-L5, L5-S1 with mild left lumbar muscle spasms Straight Leg Raise: positive at 30 degrees right side/ left side Gaenslen's Test positive Sacral spine : Severe tenderness over the Sacroiliac joint: right side / left side Range of motion: Flexion of the lumbar spine <60 degrees Range of motion: Extension of the lumbar spine <20 degrees Gaenslen's Test positive Elizabeth test: positive right side / left side Assessment and plan: Chronic low back pain secondary to lumbar degenerative disc disease , lumbar spondylosis with facet arthropathy without myelopathy Recommendation of massage to the affected area. Pt is interested in restarting formal massage sessions and/or obtaining a massage device for home use. Pt may return to our clinic on an as needed basis. All patient questions answered MAPS reviewed and it was appropriate. I have spent 31 minutes on patient care today. Dr Smith was available by phone for the evaluation of this patient. The time was used to review the medical records including relevant urine studies and Prescription history (MAPs), review of the available imaging, evaluation and examination of the pa tient, coordination of care with the medical staff and if applicable referring physicians, as well as creation of the medical record PQRS Measure Charge Sheet PQRS Narrative: Hx Alcohol Use (MH) No Home Medications: Ambulatory Orders Estradiol [Estrace] 1 mg PO DAILY 11/03/20 Levothyroxine Sodium [Synthroid] 50 mcg PO DAILY 11/03/20 Metoprolol Succinate (ER) [Toprol Xl] 25 mg PO DAILY 11/03/20 Multivitamins, Thera [Multivitamin (formulary)] 1 tab PO DAILY 11/03/20 [place]-3 Fatty Acids/Fish Oil [Fish Oil 1,000 mg Softgel] 1 each PO DAILY 11/03/20 PARoxetine HCL 20 mg PO DAILY 11/03/20 Pramipexole [Mirapex] 0.5 mg PO HS 11/03/20 Cider Vinegar [Apple Cider Vinegar] 300 mg PO DAILY 10/05/21 L.acidoph,Paracasei, B.lactis [Probiotic] 1 each PO DAILY 11/15/21 Cholecalciferol [Vitamin D3 (25 Mcg = 1000 Iu)] 25 mcg PO DAILY 11/16/21
[2021-12-05 14:47] VITALS: BP 116/76; PULSE 59; RESP 18; TEMP 98
== END ==
LOC: PNWHC3 13:51
PROVIDERS: ATTEND Physician Assistant Medical
DX: M51.36 Other intervertebral disc degeneration, lumbar region (principal); M47.816 Spondylosis without myelopathy or radiculopathy, lumbar region; G89.29 Other chronic pain
CPT/HCPCS: 99211

== ENCOUNTER 2021-12-24 01:00 | Emergency (ER) | payer MEDICARE, OTHER ==
[2021-12-24 01:06] VITALS: TEMP 98.1
[2021-12-24] MEDS ORDERED: SODIUM CHLORIDE 0.9% 1,000 ML IV STA (01:56)
[2021-12-24] MEDS ORDERED: MAG HYDROX/AL HYDROX/SIMETH 30 ML, HYOSCYAMINE ELIXIR 10 ML, LIDOCAINE VISCOUS 2% 10 ML PO STA ×3 (01:57)
--- NOTE | 2021-12-24 01:59 | ED ---
General Adult HPI - General Chief complaint: Abdominal Pain Stated complaint: Abd Pain Time Seen by Provider: 12/24/21 01:19 Source: patient, family, RN notes reviewed Mode of arrival: ambulatory Limitations: no limitations - History of Present Illness Initial comments: 66-year-old female presents to the emergency department with epigastric pain 18 hours. Patient states her discomfort is accompanied by persistent heartburn. Also complains of left lower quadrant abdominal pain with a history of diverticulitis. Patient reports mild constipation as well is abdominal bloating today. States her last bowel movement was 2-3 days ago. States she has been trying to eat healthier. Denies any recent travel or medication changes. No fever, chills, headache, chest pain, shortness of breath, nausea, vomiting, diarrhea, dysuria, or hematuria. - Related Data Home Medications Medication Instructions Recorded Confirmed Estradiol [Estrace] 1 mg PO DAILY 11/03/20 12/05/21 Levothyroxine Sodium [Synthroid] 50 mcg PO DAILY 11/03/20 12/05/21 Metoprolol Succinate (ER) [Toprol 25 mg PO DAILY 11/03/20 12/05/21 Xl] Multivitamins, Thera [Multivitamin 1 tab PO DAILY 11/03/20 12/05/21 (formulary)] [place]-3 Fatty Acids/Fish Oil [Fish 1 each PO DAILY 11/03/20 12/05/21 Oil 1,000 mg Softgel] PARoxetine HCL 20 mg PO DAILY 11/03/20 12/05/21 Pramipexole [Mirapex] 0.5 mg PO HS 11/03/20 12/05/21 Cider Vinegar [Apple Cider Vinegar] 300 mg PO DAILY 10/05/21 12/05/21 L.acidoph,Paracasei, B.lactis 1 each PO DAILY 11/15/21 12/05/21 [Probiotic] Cholecalciferol [Vitamin D3 (25 25 mcg PO DAILY 11/16/21 12/05/21 Mcg = 1000 Iu)] Previous Rx's Medication Instructions Recorded Docusate [Colace] 100 mg PO BID PRN #30 capsule 12/24/21 Famotidine [Pepcid] 20 mg PO BID #30 tablet 12/24/21 Allergies Allergy/AdvReac Type Severity Reaction Status Date / Time No Known Allergies Allergy Verified 12/24/21 01:06 Review of Systems ROS Statement: Those systems with pertinent positive or pertinent negative responses have been documented in the HPI. ROS Other: All systems not noted in ROS Statement are negative. Past Medical History Past Medical History: Atrial Fibrillation, Osteoarthritis (OA), Thyroid Disorder Additional Past Medical History / Comment(s): Low BP, Restless Leg Syndrome. ost eomyelitis toes- LEGS HAVE GIVEN OUT , HX LOW BACK PAIN WITH TINGLING FEET History of Any Multi-Drug Resistant Organisms: None Reported Past Surgical History: Breast Surgery, Cholecystectomy, Hysterectomy, Orthopedic Surgery Additional Past Surgical History / Comment(s): Bilateral shoulder surgery, carpal tunnel surgery bilateral wrists, toe surgery for bone spurs, right breast biopsy, lasik eye surgery. PAIN CLINIC PROCEDURE, EYELID SX Past Anesthesia/Blood Transfusion Reactions: No Reported Reaction Past Psychological History: Depression Smoking Status: Never smoker Past Alcohol Use History: None Reported Past Drug Use History: None Reported - Past Family History Mother Family Medical History: Cancer Additional Family Medical History / Comment(s): Liver and breast cancer. General Exam Limitations: no limitations (Developed, well-nourished female in no acute distre ss. Initial temperature 98.1, pulse 65, respirations 22, blood pressure 133/77, pulse ox 98% on room air.) General appearance: alert, in no apparent distress ENT exam: Present: normal exam, mucous membranes moist Respiratory exam: Present: normal lung sounds bilaterally. Absent: respiratory distress, wheezes, rales, rhonchi, stridor Cardiovascular Exam: Present: regular rate, normal rhythm, normal heart sounds. Absent: systolic murmur, diastolic murmur, rubs, gallop, clicks GI/Abdominal exam: Present: soft, normal bowel sounds, other (Reports bloated discomfort, abdomen is non-distended, soft, and nontender upon palpation). Absent: distended, tenderness, guarding, rebound, rigid Back exam: Absent: CVA tenderness (R), CVA tenderness (L) Neurological exam: Present: alert, oriented X3, CN II-XII intact Psychiatric exam: Present: normal affect, normal mood Skin exam: Present: warm, dry, intact, normal color. Absent: rash Course Vital Signs 12/24/21 12/24/21 01:01 04:36 Temperature 98.1 F Pulse Rate 65 57 L Respiratory 22 18 Rate Blood Pressure 133/77 119/81 O2 Sat by Pulse 98 95 Oximetry - Reevaluation(s) Reevaluation #1: 12/24/21 02:45 Upon reevaluation, patient reports improvement with GI cocktail. States she is concerned about possible diverticulitis though is resting more comfortably. CT delayed; blood hemolyzed- will recollect. Medical Decision Making - Medical Decision Making 66-year-old female with a past medical history of cholecystectomy, diverticulitis, and intermittent A. fib presents to the emergency department for evaluation of epigastric pain and lower abdominal discomfort. Upon exam, patient is well-appearing and in no acute distress. Vital signs are stable. Her abdomen is soft and nontender upon palpation. She has active bowel sounds, with no nausea or vomiting. She was given a GI cocktail with significant improvement. CT of the abdomen and pelvis was negative. Laboratory studies were unremarkable. EKG shows normal sinus rhythm with no ectopy. Did discuss short course of stool softener due to complaints of mild constipation. Prescribed 14 days of famotidine for acid reflux. Cautioned against further use unless advised to do so by PCP. Instructed to follow-up for a recheck in the next 48-72 hours. Return parameters were discussed in detail. Patient verbalizes understanding and agrees with this plan. Attending: Ubaldo. - Lab Data Result diagrams: 12/24/21 02:28 12/24/21 03:27 Lab Results 12/24/21 12/24/21 12/24/21 Range/Units 02:28 02:28 02:28 WBC 6.3 (3.8-10.6) k/uL RBC 4.68 (3.80-5.40) m/uL Hgb 14.5 (11.4-16.0) gm/dL Hct 42.9 (34.0-46.0) % MCV 91.7 (80.0-100.0) fL MCH 30.9 (25.0-35.0) pg MCHC 33.8 (31.0-37.0) g/dL RDW 12.2 (11.5-15.5) % Plt Count 213 (150-450) k/uL MPV 8.1 Neutrophils % 43 % Lymphocytes % 46 % Monocytes % 5 % Eosinophils % 4 % Basophils % 1 % Neutrophils # 2.7 (1.3-7.7) k/uL Lymphocytes # 2.9 (1.0-4.8) k/uL Monocytes # 0.3 (0-1.0) k/uL Eosinophils # 0.2 (0-0.7) k/uL Basophils # 0.1 (0-0.2) k/uL Sodium (137-145) mmol/L Potassium (3.5-5.1) mmol/L Chloride (98-107) mmol/L Carbon Dioxide (22-30) mmol/L Anion Gap mmol/L BUN (7-17) mg/dL Creatinine (0.52-1.04) mg/dL Est GFR (CKD-EPI)AfAm (>60 ml/min/1.73 sqM) Est GFR (CKD-EPI)NonAf (>60 ml/min/1.73 sqM) Glucose (74-99) mg/dL Plasma Lactic Acid Delvis 1.5 (0.7-2.0) mmol/L Calcium (8.4-10.2) mg/dL Total Bilirubin (0.2-1.3) mg/dL AST (14-36) U/L ALT (4-34) U/L Alkaline Phosphatase (38-126) U/L Troponin I (0.000-0.034) ng/mL Total Protein (6.3-8.2) g/dL Albumin (3.5-5.0) g/dL Lipase (23-300) U/L Urine Color Yellow Urine Appearance Clear (Clear) Urine pH 5.5 (5.0-8.0) Ur Specific [place] 1.025 (1.001-1.035) Urine Protein Negative (Negative) Urine Glucose (UA) Negative (Negative) Urine Ketones Negative (Negative) Urine Blood Trace H (Negative) Urine Nitrite Negative (Negative) Urine Bilirubin Negative (Negative) Urine Urobilinogen <2.0 (<2.0) mg/dL Ur Leukocyte Esterase Negative (Negative) Urine RBC 2 (0-5) /hpf Urine WBC 1 (0-5) /hpf Ur Squamous Epith Cells 6 H (0-4) /hpf Urine Mucus Occasional H (None) /hpf 12/24/21 12/24/21 Range/Units 03:27 03:27 WBC (3.8-10.6) k/uL RBC (3.80-5.40) m/uL Hgb (11.4-16.0) gm/dL Hct (34.0-46.0) % MCV (80.0-100.0) fL MCH (25.0-35.0) pg MCHC (31.0-37.0) g/dL RDW (11.5-15.5) % Plt Count (150-450) k/uL MPV Neutrophils % % Lymphocytes % % Monocytes % % Eosinophils % % Basophils % % Neutrophils # (1.3-7.7) k/uL Lymphocytes # (1.0-4.8) k/uL Monocytes # (0-1.0) k/uL Eosinophils # (0-0.7) k/uL Basophils # (0-0.2) k/uL Sodium 135 L (137-145) mmol/L Potassium 3.6 (3.5-5.1) mmol/L Chloride 107 (98-107) mmol/L Carbon Dioxide 23 (22-30) mmol/L Anion Gap 5 mmol/L BUN 16 (7-17) mg/dL Creatinine 0.83 (0.52-1.04) mg/dL Est GFR (CKD-EPI)AfAm 86 (>60 ml/min/1.73 sqM) Est GFR (CKD-EPI)NonAf 75 (>60 ml/min/1.73 sqM) Glucose 95 (74-99) mg/dL Plasma Lactic Acid Delvis (0.7-2.0) mmol/L Calcium 8.1 L (8.4-10.2) mg/dL Total Bilirubin 0.3 (0.2-1.3) mg/dL AST 23 (14-36) U/L ALT 13 (4-34) U/L Alkaline Phosphatase 108 (38-126) U/L Troponin I <0.012 (0.000-0.034) ng/mL Total Protein 5.8 L (6.3-8.2) g/dL Albumin 3.2 L (3.5-5.0) g/dL Lipase 68 (23-300) U/L Urine Color Urine Appearance (Clear) Urine pH (5.0-8.0) Ur Specific [place] (1.001-1.035) Urine Protein (Negative) Urine Glucose (UA) (Negative) Urine Ketones (Negative) Urine Blood (Negative) Urine Nitrite (Negative) Urine Bilirubin (Negative) Urine Urobilinogen (<2.0) mg/dL Ur Leukocyte Esterase (Negative) Urine RBC (0-5) /hpf Urine WBC (0-5) /hpf Ur Squamous Epith Cells (0-4) /hpf Urine Mucus (None) /hpf - EKG Data EKG shows normal: sinus rhythm Rate: normal EKG Comments: EKG obtained at 0235 shows sinus bradycardia with nonspecific T-wave abnorm ality. Ventricular rate 56, WI interval 144, QRS duration 89, QT/QTc 448/440. Interpretation borderline ECG. - Radiology Data Radiology results: report reviewed, image reviewed CT of the abdomen and pelvis with contrast was obtained. Report was reviewed in its entirety. Impression per Dr. Paz as negative computed tomography scan abdomen and pelvis. There are some sigmoid diverticula without diverticulitis. Disposition Clinical Impression: Abdominal pain, Mild acid reflux Disposition: HOME SELF-CARE Condition: Stable Instructions (If sedation given, give patient instructions): GERD (Gastroesophageal Reflux Disease) (ED), Abdominal Pain (ED) Additional Instructions: Take Famotidine (Pepcid) twice daily for 14 days- acid academic interventionist. Use colace twice daily for three days- stool softener. Minimize intake of seeds, nuts, greasy, fatty, and spicy foods. Follow up with your PCP for a recheck in the next 48-72 hours. Return to the emergency department with any new, worsening, or concerning symptoms. Prescriptions: Docusate [Colace] 100 mg PO BID PRN #30 capsule PRN Reason: Constipation Famotidine [Pepcid] 20 mg PO BID #30 tablet Is patient prescribed a controlled substance at d/c from ED?: No Referrals: Dl Lozano DO [Primary Care Provider] - 1-2 days Time of Disposition: 04:57
[2021-12-24 02:44] LABS: Appearance,Urine Clear (Clear); Bilirubin,Urine Negative (Negative); Blood,Urine Trace (Negative); Color,Urine Yellow; Glucose,Urine (UA) Negative (Negative); Ketones,Urine Negative (Negative); Leukocyte Esterase,Urine Negative (Negative); Mucus,Urine Occasional /hpf; Nitrite,Urine Negative (Negative); PH, Urine 5.5 (5.0-8.0); Protein,Urine Negative (Negative); RBC,Urine 2 /hpf (0-5); Specific Gravity,Urine 1.025 (1.001-1.035); Squamous Epithelial Cell,Urine 6 /hpf (0-4); Urobilinogen,Urine <2.0 mg/dL (<2.0); WBC,Urine 1 /hpf (0-5)
[2021-12-24 02:50] LABS: Basophils # (A) 0.1 k/uL (0-0.2); Basophils % (A) 1 %; Eosinophils # (A) 0.2 k/uL (0-0.7); Eosinophils % (A) 4 %; HCT 42.9 % (34.0-46.0); HGB 14.5 gm/dL (11.4-16.0); Lymphocytes # (A) 2.9 k/uL (1.0-4.8); Lymphocytes % (A) 46 %; MCH 30.9 pg (25.0-35.0); MCHC 33.8 g/dL (31.0-37.0); MCV 91.7 fL (80.0-100.0); Mean Platelet Volume 8.1; Monocytes # (A) 0.3 k/uL (0-1.0); Monocytes % (A) 5 %; Neutrophils # (A) 2.7 k/uL (1.3-7.7); Neutrophils % (A) 43 %; Platelet Count 213 k/uL (150-450); RBC 4.68 m/uL (3.80-5.40); RDW 12.2 % (11.5-15.5); WBC 6.3 k/uL (3.8-10.6)
[2021-12-24 03:51] LABS: Albumin 3.2 g/dL (3.5-5.0); Calcium 8.1 mg/dL (8.4-10.2); Potassium 3.6 mmol/L (3.5-5.1); Total Bilirubin 0.3 mg/dL (0.2-1.3); Total Protein 5.8 g/dL (6.3-8.2)
--- NOTE | 2021-12-24 04:27 | CT ---
EXAMINATION TYPE: CT abdomen pelvis w con DATE OF EXAM: 12/24/2021 COMPARISON: None HISTORY: LLQ Abd Pain CT DLP: 1015.60 mGycm Automated exposure control for dose reduction was used. CONTRAST: Performed with IV Contrast, patient injected with 100 mL of Isovue 300. Images obtained from the diaphragm to the floor the pelvis with IV contrast. The lung bases are clear. There is no pleural effusion. Heart size is normal. There is no pericardial effusion. There is some contrast reflux into the inferior vena cava. Liver and spleen appear intact. The bile d ucts are not dilated. Pancreas appears normal. There are clips from cholecystectomy. Stomach is intac t. There is no adrenal mass. Kidneys show satisfactory contrast opacification. There is no hydronephrosi s. Ureters are not dilated. There is no retroperitoneal adenopathy. The bladder distends smoothly. Th ere is no inguinal hernia. No pelvic mass. There are a few sigmoid diverticula. No diverticulitis. Appendix is lateral and appears normal. There is no mesenteric edema. No ascites or free air. No bowel obstruction. The lumbar vertebrae have normal alignment. There is degenerative disc space narrowing at L3-4 with s purring. No compression fracture. Bony pelvis is intact. The hip joints are intact. IMPRESSION: Negative CT scan abdomen and pelvis. There are some sigmoid diverticula without diverticulitis.
[2021-12-24 04:37] VITALS: BP 119/81; PULSE 57; RESP 18
== END 2021-12-24 05:10 | disposition home or self-care (01) ==
LOC: EC 01:00
DX: K21.9 Gastro-esophageal reflux disease without esophagitis (principal); I48.91 Unspecified atrial fibrillation; M19.90 Unspecified osteoarthritis, unspecified site; E07.9 Disorder of thyroid, unspecified; F32.A Depression, unspecified; Z90.49 Acquired absence of other specified parts of digestive tract; Z90.710 Acquired absence of both cervix and uterus
CPT/HCPCS: 99284; 96360; 36415; 93005; 80053; 83605; 83690; 84484; 85025; 81001; 74177; Q9967

== ENCOUNTER → 2022-07-17 | Outpatient (CLI) | payer MEDICARE, OTHER ==
--- NOTE | 2022-07-17 08:22 | BD ---
EXAMINATION TYPE: Axial Bone Density DATE OF EXAM: 07/17/2022 COMPARISON: NONE CLINICAL HISTORY: 66 years year old Female. ICD-10 CODE: Z13.820 OSTEOPOROSIS,N95.1SYMPOTOMATIC NAVJOT PAUSE,Z78.0 Height: 5 FT 3 IN Weight: 162 FRAX RISK QUESTIONS: Alcohol (3 or more units per day): NO Family History (Parent hip fracture): NO Glucocorticoids (More than 3mos): NO (Ex: prednisone, prednisolone, methylprednisolone, dexamethasone, and hydrocortisone). History of Fracture in Adulthood: YES Secondary Osteoporosis: 1. Type 1 Diabetes: NO 2. Hyperthyroidism: NO 3. Menopause before 45: NO 4. Malnutrition: NO 5. Chronic liver disease: NO Rheumatoid Arthritis: NO Current Tobacco Use: NO RISK FACTORS HISTORY OF: Surgery to Spine/Hip(right/left)/Wrist (right/left): NO Family History of Osteoporosis: NO Active: YES Diet low in dairy products/other sources of calcium: NO Postmenopausal woman: YES Take estrogen and/or progesterone medications: YES How long: OVER 10 YEARS Lost more than 2 inches in height since high school: NO Frequent falls: NO Poor Health: GOOD Hyperparathyroidism: NO Adrenal Insufficiency: NO MEDICATIONS: Thyroid Medications: YES Which medication: SYNTHROID How Long: OVER 10 EARS Additional Medications: SYNTHROID, ESTRADIOL, DEPRESSION MEDS, MIRAPEX, ALBUTEROL, ASPIRIN, BENTYL, L ANOXIN, NORCO, CULTURELLE, MOBIC, OMEPRAZOLE, PAXIL, ELIQUIS, METOPROLOL Additional History: EXAM MEASUREMENTS: Bone mineral densitometry was performed using the [employer] System. Bone mineral density as measured about the Lumbar spine is: ----- L1-L4(G/cm2): 1.410 T Score Values are as follows: ----- L1: 1.0 ----- L2: 0.8 ----- L3: 2.9 ----- L4: 2.7 ----- L1-L4: 1.9 PREV DONE ELSEWHERE Bone mineral density about the R hip (g/cm2): 0.927 Bone mineral density about the L hip (g/cm2): 0.964 T Score values are as follows: -----R Neck: -0.8 -----L Neck: -0.5 -----R Total: 0.2 -----L Total: 0.2 PREV DONE ELSEWHERE FRAX%s: The graph provided illustrates a 7.7 % chance for a major osteoporotic fx and a 0.5 % chance for the hips probability for fx in 10 years time. IMPRESSION: Normal (Values between +1 and -1 indicate normal bone mass). Consider repeating this study in 5 year s or sooner if there is some new clinical indication. NOTE: T-SCORE=SD OF THE YOUNG ADULT MEAN.
--- NOTE | 2022-07-18 08:52 | MM ---
Reason for Exam: Screening (asymptomatic). Last mammogram was performed 1 year(s) and 1 month(s) ago. Patient History: Menarche at age 13. First Full-Term at age 22. Left ovary removed at age 53. Right ovary removed at age 53. Hysterectomy at age 53. Postmenopausal. Currently using Estrogen, starting at age 53. Patient used Hormonal Contraceptives for 2 years. 1980, Benign Excisional Biopsy on the right side. Maternal aunt had breast cancer. Maternal aunt had breast cancer. Mother had breast cancer, age 40. Risk Values: Ana 5 year model risk: 3.7%. NCI Lifetime model risk: 13.6%. Prior Study Comparison: 06/07/2019 Screening Mammogram, [facility]. 06/16/2020 Screening Mammogram, [place] [facility]. 06/26/2021 Bilateral Screening Mammogram, [facility]. Tissue Density: The breast tissue is heterogeneously dense. This may lower the sensitivity of mammography. Findings: Analyzed By CAD. Benign-appearing vascular calcifications towards the bilateral axilla is redemonstrated. Benign-appearing left axillary lymph nodes redemonstrated. There is no suspicious new group of microcalcifications or new suspicious mass in either breast. Overall Assessment: Negative, BI-RAD 1 Management: Screening Mammogram of both breasts in 1 year. Some advised bilateral breast ultrasound surveillance in patients with background dense tissue. A clinical breast exam by your physician is recommended on an annual basis and results should be correlated with mammographic findings. Electronically signed and approved by: Cheikh Baez M.D.
--- NOTE | 2022-07-18 08:52 | MM ---
Reason for Exam: Screening (asymptomatic). Last mammogram was performed 1 year(s) and 1 month(s) ago. Patient History: Menarche at age 13. First Full-Term at age 22. Left ovary removed at age 53. Right ovary removed at age 53. Hysterectomy at age 53. Postmenopausal. Currently using Estrogen, starting at age 53. Patient used Hormonal Contraceptives for 2 years. 1980, Benign Excisional Biopsy on the right side. Maternal aunt had breast cancer. Maternal aunt had breast cancer. Mother had breast cancer, age 40. Risk Values: Ana 5 year model risk: 3.7%. NCI Lifetime model risk: 13.6%. Prior Study Comparison: 06/07/2019 Screening Mammogram, [facility]. 06/16/2020 Screening Mammogram, [place] [facility]. 06/26/2021 Bilateral Screening Mammogram, [facility]. Tissue Density: The breast tissue is heterogeneously dense. This may lower the sensitivity of mammography. Findings: Analyzed By CAD. Benign-appearing vascular calcifications towards the bilateral axilla is redemonstrated. Benign-appearing left axillary lymph nodes redemonstrated. There is no suspicious new group of microcalcifications or new suspicious mass in either breast. Overall Assessment: Negative, BI-RAD 1 Management: Screening Mammogram of both breasts in 1 year. Some advised bilateral breast ultrasound surveillance in patients with background dense tissue. A clinical breast exam by your physician is recommended on an annual basis and results should be correlated with mammographic findings. Electronically signed and approved by: Cheikh Baez M.D.
== END | disposition home or self-care (01) ==
LOC: RADMAMWWP 07:25
PROVIDERS: ATTEND Obstetrics & Gynecology
DX: Z12.31 Encounter for screening mammogram for malignant neoplasm of breast (principal); Z13.820 Encounter for screening for osteoporosis; Z78.0 Asymptomatic menopausal state; Z80.3 Family history of malignant neoplasm of breast
CPT/HCPCS: 77063; 77067; 77080

== ENCOUNTER → 2023-03-22 | Outpatient (CLI) | payer MEDICARE, OTHER ==
--- NOTE | 2023-03-22 13:40 | MR ---
EXAMINATION TYPE: MR lumbar spine wo con DATE OF EXAM: 03/22/2023 1:19 PM COMPARISON: 10/07/2020 HISTORY: Low back pain that radiates down to feet Multiplanar, MultiSpin echo imaging of the lumbar spine was performed. L1-L2: There is mild decreased signal and loss compatible with degenerative disc disease. Mild solar energy technician ior disc bulge slightly greater towards the left. No central stenosis or lateral recess stenosis. Mil d left foraminal encroachment. L2-L3: There is mild decreased signal and loss compatible with degenerative disc disease. Mild solar energy technician ior disc bulge slightly greater towards the left. No central stenosis or lateral recess stenosis. Mil d bilateral foraminal encroachment. L3-L4: Severe disc desiccation with degenerative endplate marrow changes seen. Circumferential disc b ulge greatest posteriorly [id number] in degree. There is effacement of the ventral thecal sac w ith left lateral recess stenosis. Moderate bilateral neural foraminal encroachment left greater than right. Facet joint arthropathy seen. L4-L5: Mild disc desiccation with posterior disc bulge. Mild effacement ventral thecal sac. No eviden ce for central stenosis or lateral recess stenosis. Foramina are patent bilaterally. L5-S1: Normal disc appearance without desiccation. No herniation, protrusion or disc bulging. No ca nal stenosis is present. Foramina are patent bilaterally. Lumbar segments are intact. No paraspinal masses are identified. Conus medullaris has a normal appe arance. Multilevel spondylosis at multiple levels. IMPRESSION: 1. Multilevel degenerative disc disease with progression at L3-4. 2 left lateral recess stenosis at L 3-4. 3. Varying degrees of foraminal encroachment.
== END | disposition home or self-care (01) ==
LOC: RADMRIMAIN 12:31
PROVIDERS: ATTEND Psychiatry & Neurology Neurology
DX: M51.16 Intervertebral disc disorders with radiculopathy, lumbar region (principal); M48.061 Spinal stenosis, lumbar region without neurogenic claudication; M47.26 Other spondylosis with radiculopathy, lumbar region; R20.2 Paresthesia of skin
CPT/HCPCS: 72148

== ENCOUNTER → 2023-04-30 | Outpatient (CLI) | payer MEDICARE, OTHER ==
[2023-04-30 10:08] VITALS: BP 138/55; PULSE 62; RESP 17; TEMP 98.3
--- NOTE | 2023-04-30 13:56 | P.HPOB ---
History of Present Illness H&P Date: 04/30/23 Chief Complaint: The patient is here for her routine gynecologic exam. This is a 67-year-old with an LMP of 2008. The patient is here to establish with this office. It has been about 1 year since her last pelvic exam. She is complaining of pelvic pressure in the area of her bladder with urinary symptoms including urinary frequency, urinary urgency and dysuria. Her symptoms started about 2 weeks ago. She states the dysuria was noted initially but this has improved. She is status post a ISAAC/BSO for benign reasons. She has been on ERT for many years following her hysterectomy. Review of Systems She is gained about 15 pounds during the past year. She denies respiratory or cardiac problems. GI: Occasional bloating which she she has noted for many years. Past Medical History Past Medical History: Atrial Fibrillation, Osteoarthritis (OA), Thyroid Disorder Additional Past Medical History / Comment(s): Low BP, Restless Leg Syndrome. osteomyelitis toes- LEGS HAVE GIVEN OUT , HX LOW BACK PAIN WITH TINGLING FEET. Hypothyroidism. PAST [employer] HISTORY: She has no history of STDs. History of Any Multi-Drug Resistant Organisms: None Reported Past Surgical History: Breast Surgery, Section, Cholecystectomy, Hysterectomy, Orthopedic Surgery Additional Past Surgical History / Comment(s): 3 sections, ISAAC/BSO 2007. Bilateral shoulder surgery, carpal tunnel surgery bilateral wrists, toe surgery for bone spurs, right breast biopsy, lasik eye surgery. PAIN CLINIC PROCEDURE, EYELID SX. colonoscopy 2019(next after 4yr). Past Anesthesia/Blood Transfusion Reactions: No Reported Reaction Past Psychological History: Depression (Depression is well controlled with medication.) Smoking Status: Never smoker Past Alcohol Use History: Rare (3 per year.) Past Drug Use History: Marijuana (Rare use.) Additional Drug Use History / Comment(s): Hx Marijuana use, no use currently. Additional History: She is . She has a boyfriend who she has been with since 2004. There lived together. 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 - Past Family History Mother Family Medical History: Cancer Additional Family Medical History / Comment(s): Liver and breast cancer. . Maternal aunt had breast and cervical cancer. Father Family Medical History: Diabetes Mellitus Additional Family Medical History / Comment(s): . Sister(s) Family Medical History: Diabetes Mellitus Medications and Allergies Home Medications Medication Instructions Recorded Confirmed Type Levothyroxine Sodium [Synthroid] 50 mcg PO DAILY 11/03/20 04/30/23 History Metoprolol Succinate (ER) [Toprol 25 mg PO DAILY 11/03/20 04/30/23 History Xl] Multivitamins, Thera [Multivitamin 1 tab PO DAILY 11/03/20 04/30/23 History (formulary)] Manning-3 Fatty Acids/Fish Oil [Fish 1 each PO DAILY 11/03/20 04/30/23 History Oil 1,000 mg Softgel] PARoxetine HCL 20 mg PO DAILY 11/03/20 04/30/23 History Pramipexole [Mirapex] 0.5 mg PO HS 11/03/20 04/30/23 History estradioL [Estrace] 1 mg PO DAILY 11/03/20 04/30/23 History L.acidoph,Paracasei, B.lactis 1 each PO DAILY 11/15/21 04/30/23 History [Probiotic] Cholecalciferol [Vitamin D3 (25 25 mcg PO DAILY 11/16/21 04/30/23 History Mcg = 1000 Iu)] Magnesium Oxide [Magnesium] 500 mg PO DAILY 04/30/23 04/30/23 History Allergies Allergy/AdvReac Type Severity Reaction Status Date / Time No Known Allergies Allergy Verified 04/30/23 10:02 Exam Vital Signs Temp Pulse Resp BP Pulse Ox 04/30/23 10:05 98.3 F 62 17 138/55 100 Intake and Output 04/29/23 04/30/23 04/30/23 22:59 06:59 14:59 Other: Weight 79.379 kg Height 5 feet 4 inches, weight 175 pounds, BMI 30.0. This is a well-developed well-nourished white female who is alert and oriented times 3 in no acute distress. HEENT: Within normal limits. NECK: Supple without mass or thyromegaly. CHEST AND LUNGS: Clear to auscultation. HEART: Regular rate and rhythm. With infrequent irregular beat. BREASTS: Are without mass or discharge. AXILLARY EXAM: Negative for adenopathy. BACK: Negative for CVA tenderness. ABDOMEN: Soft, nontender, without palpable masses. PELVIC EXAM: External genitalia appears normal with mild atrophy. Vagina appears normal mild atrophy. There is no evidence of prolapse. Bimanual examination is negative for mass or tenderness. RECTAL EXAM: Rectovaginal exam is negative for mass or tenderness and is negati ve for occult blood. EXTREMITIES: Nontender. IMPRESSION: 1. 67-year-old menopausal female status post ISAAC/BSO for benign reasons, with unremarkable gynecologic exam. 2. Urinary symptoms including pelvic pressure, urinary frequency, urinary urgency and resolving dysuria. There are no significant physical findings on exam today. Most likely this represents a UTI. Pelvic mass or neoplasm is unl ikely since she has an unremarkable bimanual examination. If the urine is negative we will consider pelvic ultrasound. 3. The patient has been using ERT for many years following her hysterectomy. 4. History of atrial fibrillation. PLAN: 1. Pap smears have been discontinued. 2. Self breast awareness was discussed with the patient. We have also discussed symptoms associated with inflammatory breast cancer. 3. Screening mammogram will be due in June. Her last mammogram was benign on 07/17/2022. The order slip for her upcoming mammogram was given to the patient. 4. Urine has been obtained for urinalysis and urine culture with sensitivities. If this is negative for infection we'll consider pelvic ultrasound because of her pelvic pressure. 5. Osteoporosis prevention was discussed. I have stressed the importance of adequate calcium, vitamin D and regular exercise. Recommended amounts of calcium and vitamin D were also discussed. She had a normal bone density test on 07/17/2022. We will plan on repeating this after about 5 years. 6. We have had a long discussion regarding her ERT use. Because of her history of atrial fibrillation, this happily puts her at greater risk for stroke. Since ERT may increase the risk for blood clots and stroke, I recommended that she get off of the ERT as soon as possible. She will continue to see a coil taper for management of her atrial fibrillation. 7. She was advised to return in one year for her annual well woman exam and as needed.
--- NOTE | 2023-05-01 12:05 | P.PN ---
Progress Note - Text Progress Note Date: 05/01/23 Urinalysis done on 04/30/23 was negative for infection. A message with this result was left on the patient's voicemail. I also informed her in the message that I would call her after the urine culture results are in.
== END ==
LOC: WWCWWP 09:43
PROVIDERS: ATTEND Obstetrics & Gynecology
DX: Z01.419 Encounter for gynecological examination (general) (routine) without abnormal findings (principal); R35.0 Frequency of micturition; I48.91 Unspecified atrial fibrillation; E03.9 Hypothyroidism, unspecified; M86.9 Osteomyelitis, unspecified; N39.0 Urinary tract infection, site not specified; G25.81 Restless legs syndrome; M19.90 Unspecified osteoarthritis, unspecified site; Z90.710 Acquired absence of both cervix and uterus; Z78.0 Asymptomatic menopausal state; Z79.890 Hormone replacement therapy

== ENCOUNTER → 2023-05-12 | Outpatient (CLI) | payer MEDICARE, OTHER ==
--- NOTE | 2023-05-12 12:53 | P.PN ---
Subjective Progress Note Date: 05/12/23 A 67 yr old female with a history of severe and chronic low back pain secondary to lumbar degenerative disc diseases, disc protrusion and neuroforaminal stenosis, with facet arthropathy . States that her pain is dull/ achy in the lower back "where the spine meets the pelvis" and is provoked by twisting, sitting for periods of >30 minutes or lifting. Pain is alleviated with OTC medications & topicals, heat, rest, injections, and home based stretching routines. She reported that the pain occasionally associated with numbness and tingling sensation in the lower extremity, she denies any fever or night sweats she denies any change in the bowel movements or urination Interventional pain procedures completed include RFA medial Branches Patient is currently on over the counter pain medications Patient denies any side effects of the medication(s), denies excessive drowsine ss or sleepiness, denies suicidal ideation and reports that the current pain medication is helping to control the pain and improve activities of daily living. Patient denies any motor or sensory deficits. Patient denies any fever or night sweats, denies any change in the bowel movements or urination. Physical Examination: -Constitutional: Cooperative. Not in acute distress . -HEENT: Neck is supple. No lymphadenopathy. No thyromegaly. Normal thyroid size. Eyes: No ptosis , no icterus, no photophobia. ENT: No auditory deficits. Normal oropharynx. No Thrush. - Respiratory: Chest clear to auscultations bilaterally. No wheezing. No rhonchi. - Cardiovascular: Regular rate and rhythm. S1 / S2 , no S3 , no S4. - Gastrointestinal: Abdomen soft no tenderness. Bowel sounds positive in all four quadrants. No organomegaly. - Genitourinary: Deferred. - Neurologic: Cranial nerve II to XII intact. No focal neurological deficits. - Psychatric: Alert & oriented x 3. Matching mood & appropriate affect. Judgment and insight intact. - Lymphatic: No Lymphadenopathy. - Musculoskeletal: Cervical spine: Muscle bulk/ tone/ strength in the bilateral upper extremities normal. Facet loading test cervical area positive. Lumbar spine: Motor bulk/ tone/ strength lower extremities , thigh and legs : 5/5 Deep tendon reflexes : Normal Knee Jerk. Normal Ankle Jerk . Lumbar Facet Loading Test positive Straight Leg Raise: positive at 30 degree right side/ left side Elizabeth test: positive right side / left side Gaenslen's test : positive on the left Range of motion: Flexion of the lumbar spine <60 degrees Range of motion: Extension of the lumbar spine <20 degrees Severe tenderness over the Sacroiliac joint: right side / left side MRI of the lumbar spine = showed multilevel lumbar degenerative disc disease multilevel lumbar facet arthropathy and multilevel lumbar foraminal stenosis Assessment and plan: Chronic low back pain secondary to lumbar degenerative disc disease , disc protrusion Lumbar spinal stenosis. Lumbar spondylosis with lumbar facet arthropathy. Patient to be a good candidate to have lumbar epidural steroid injection at the L3 4 levels OSWESTRY low back pain disability score is 20 Home Medications: Ambulatory Orders Aspirin [Adult Low Dose Aspirin EC] 81 mg PO DAILY 11/03/20 Estradiol [Estrace] 1 mg PO DAILY 11/03/20 Levothyroxine Sodium [Synthroid] 50 mcg PO DAILY 11/03/20 Metoprolol Succinate (ER) [Toprol Xl] 25 mg PO DAILY 11/03/20 Multivitamins, Thera [Multivitamin (formulary)] 1 tab PO DAILY 11/03/20 [place]-3 Fatty Acids/Fish Oil [Fish Oil 1,000 mg Softgel] 1 each PO DAILY 11/03/20 PARoxetine HCL 20 mg PO DAILY 11/03/20 Pramipexole [Mirapex] 0.5 mg PO HS 11/03/20 Cider Vinegar [Apple Cider Vinegar] 300 mg PO DAILY 10/05/21 Objective - Vital Signs Vital signs: Intake & Output 05/11/23 05/12/23 05/12/23 18:59 06:59 18:59 Weight 77.111 kg
[2023-05-12 12:56] VITALS: BP 114/82; PULSE 56; RESP 16; TEMP 97.9
== END ==
LOC: PNWHC3 11:46
PROVIDERS: ATTEND Specialist
DX: M51.36 Other intervertebral disc degeneration, lumbar region (principal); M47.26 Other spondylosis with radiculopathy, lumbar region; M47.16 Other spondylosis with myelopathy, lumbar region; G89.29 Other chronic pain; M48.061 Spinal stenosis, lumbar region without neurogenic claudication; Z79.82 Long term (current) use of aspirin
CPT/HCPCS: 99211

== ENCOUNTER 2023-05-29 10:37 | Day surgery (SDC) | payer MEDICARE, OTHER ==
[2023-05-23 12:25] VITALS: BMI 29.2
[~2023-05-29 10:37] MED LIST changes: +LACTATED RINGERS 1,000 ML IV SCH; -MIDAZOLAM 2 MG/2 ML VIAL ONE; -ROPIVACAINE 5MG/ML 20ML VIAL ONE; -TRIAMCINOLONE ACETONIDE 40 MG/ML 1 ML VIAL ONE
[2023-05-29 10:53] VITALS: RESP 18; TEMP 97.2
[2023-05-29] MEDS ORDERED: IOPAMIDOL M200 10 ML VIAL ONE (11:37)
[2023-05-29] MEDS ORDERED: methylPREDNISolone ACETATE 80 MG/ML 1 ML VIAL ONE (11:37)
--- NOTE | 2023-05-29 11:44 | P.PCN ---
Date of Procedure: 05/29/23 Procedure(s) Performed: PREOPERATIVE DIAGNOSIS: 1- Lumbar Degenerative Disc Diseases 2-Lumbar spondylosis with Facet arthropathy without myelopathy. 3-lumbar spinal stenosis POSTOPERATIVE DIAGNOSIS: 1-lumbar degenerative disc disease. 2-lumbar spondylosis with facet arthropathy without myelopathy. 3-lumbar spinal stenosis. PROCEDURE 1. Lumbar epidural steroid injection under fluoroscopic guidance at the L3-4 level. (Fluoroscopy imaging was available in radiology department) 2. Lumbar epidurogram. ANESTHESIA: Lidocaine 1% 3 and then only. EBL: Minimal PROCEDURE INDICATION: The patient with low back pain and radiculitis symptoms unresponsive to conservative treatment. Fluoroscopy was used to optimize visualization of the needle placement and to maximize safety. PROCEDURE DESCRIPTION / TECHNIQUE: The patient was seen and identified in the preoperative area. Risks, benefits, complications including but not limited to infections ,bleeding ,allergic reaction to the medications ,nerve damage and not complete pain releife , and alternatives were discussed with the patient. The patient agreed to proceed with the procedure and signed the consent, and vital signs were stable. Patient was taken to the OR and time out was completed. The patient was placed in the prone position on procedure table and a pillow was placed under the abdomen to reduce lumbar lordosis. The lumbosacral area was prepped and draped in the usual sterile fashion.ere closely monitored during the procedure. Vital signs was monitered during the entire procedure. Using anterior-posterior fluoroscopy, the L3-4 interlaminar space was identified and the skin over this site was marked and then infiltrated with 1% lidocaine subcutaneously. Subsequently, a 20-gauge Tuohy epidural needle was inserted and advanced toward the epidural space using the ``Loss of resistance technique and guided by AP and lateral fluoroscopy. The correct needle position in the epidural space was verified with the injection of 2 mL of the water soluble contrast dye Isovue 200 contrast and observing an excellent epidurogram with the epidural spread of the dye, after negative aspiration for blood and CSF and in the absence of paresthesias. Again after negative aspiration, a 6 ml mixture containing 60 mg of Depo-medrol ( Preservetive Free ), and 2 ml of preservative free Normal Saline, and 2 ml of preservative free lidocaine 1% solution was injected and a washout of epidurogram was seen. Needle was withdrawn intact, skin was cleansed, and bandages were applied. COMPLICATIONS: None DISPOSITION / PLANS: The patient was placed in a supine position and transferred to the recovery area in a stable condition for observation. There was no evidence of lower extremity motor or sensory deficit after the procedure. Patient was discharged from the recovery room after meeting discharge criteria. Home discharge instructions were given to the patient by the staff. The patient was reexamined prior to discharge. The patient will schedule a follow up in the clinic in 2-4 weeks.
[2023-05-29 11:55] VITALS: PULSE 67
[2023-05-29 12:00] VITALS: BP 104/72
--- NOTE | 2023-05-29 12:27 | FL ---
Intraoperative/procedural fluoroscopic services were provided for lumbar epidural steroid injection. Total fluoroscopy time is 1 second with a total of 1 submitted image to PACS. Total DAP [id number] [id number] . Please see the operative note for further details.
== END 2023-05-29 12:03 | disposition home or self-care (01) ==
LOC: ORPAIN 10:37
PROVIDERS: ATTEND Specialist
DX: M51.16 Intervertebral disc disorders with radiculopathy, lumbar region (principal); M47.26 Other spondylosis with radiculopathy, lumbar region; M48.061 Spinal stenosis, lumbar region without neurogenic claudication; Z79.899 Other long term (current) drug therapy
CPT/HCPCS: 62323; J1040; Q9966

== ENCOUNTER → 2024-05-18 | Outpatient (CLI) | payer MEDICARE, OTHER ==
--- NOTE | 2024-06-07 10:30 | MM ---
Reason for Exam: Screening (asymptomatic). Last mammogram was performed 1 year(s) and 10 month(s) ago. Patient History: Menarche at age 13. First Full-Term at age 22. Left ovary removed at age 53. Right ovary removed at age 53. Hysterectomy at age 53. Postmenopausal. Currently using Estrogen, starting at age 53. Patient used Hormonal Contraceptives for 2 years. 1980, Benign Excisional Biopsy on the right side. Maternal aunt had breast cancer. Maternal aunt had breast cancer. Mother had breast cancer, age 40. Risk Values: Ana 5 year model risk: 3.8%. NCI Lifetime model risk: 12.7%. Prior Study Comparison: 06/16/2020 Screening Mammogram, [facility], [place]. 06/26/2021 Bilateral Screening Mammogram, [facility]. 07/17/2022 Bilateral MG 3D screening mammo w/cad, [facility]. Tissue Density: The breasts are heterogeneously dense, which may obscure small masses. Findings: Analyzed By CAD. There is no suspicious group of microcalcifications or new suspicious mass in either breast. Overall Assessment: Benign, BI-RAD 2 Management: Screening Mammogram of both breasts in 1 year. . Patient should continue monthly self-breast exams. A clinical breast exam by your physician is recommended on an annual basis. This exam should not preclude additional follow-up of suspicious palpable abnormalities. Note on Ana scores and lifetime risk: 1. A Aan score greater than 3% is considered moderate risk. If this is the case, consider specialist referral to assess eligibility for a risk reducing agent. 2. If overall lifetime risk for the development of breast cancer is 20% or higher, the patient may qualify for future screening with alternating mammogram and breast MRI. Electronically signed and approved by: Shaquille Alcantara M.D. Radiologis
== END | disposition home or self-care (01) ==
LOC: RADMAMWWP 15:30
PROVIDERS: ATTEND Obstetrics & Gynecology
DX: Z12.31 Encounter for screening mammogram for malignant neoplasm of breast (principal); Z01.419 Encounter for gynecological examination (general) (routine) without abnormal findings; Z78.0 Asymptomatic menopausal state; Z80.3 Family history of malignant neoplasm of breast; R92.333 Mammographic heterogeneous density, bilateral breasts
CPT/HCPCS: 77067

== ENCOUNTER → 2024-05-18 | Outpatient (CLI) | payer MEDICARE, OTHER ==
--- NOTE | 2024-06-25 13:16 | WWHP ---
[facility] - HISTORY AND PHYSICAL CHIEF COMPLAINT: The patient is here for her routine gynecologic exam and mammogram. HPI: This is a 68-year-old menopausal female, who is status post ISAAC and BSO done in 2006 for benign reasons. The patient is without gynecologic complaints. PAST MEDICAL HISTORY: Hypothyroidism, depression, restless legs syndrome, tachycardia with intermittent arrhythmia, and chronic digestive issues. MEDICATIONS: 1. Bupropion XL 150 mg daily. 2. Metoprolol ER 25 mg daily. 3. Levothyroxine 50 mcg daily. 4. Paroxetine 40 mg daily. 5. Mirapex 0.5 mg b.i.d. 6. She also takes multiple supplements and vitamins. PAST SURGICAL HISTORY: Please refer to her 2022 H and P. She has also had a back surgery in 2023. FAMILY HISTORY: Sister has diabetes. Also refer to the 2022 H and P. SOCIAL HISTORY: She denies tobacco use. She admits to about 1 to 2 alcohol containing drinks per year. She also admits to using marijuana occasionally and she does smoke this occasionally. She denies any other drug use. She is and has been with her partner that she lives with for about 16 years. She is retired. REVIEW OF SYSTEMS: She believes she has gained about 15 pounds over the past year. She denies respiratory, cardiac, or GI problems. PHYSICAL EXAMINATION: VITAL SIGNS: Blood pressure 113/79, height 5 feet 5 inches, weight 174 pounds, BMI 29. Temperature 98.5, pulse 63, pulse oximeter 99%. GENERAL: This is a well-developed, well-nourished, white female, who is alert and oriented x3, in no acute distress. HEENT: Within normal limits. NECK: Supple without mass or thyromegaly. CHEST AND LUNGS: Clear to auscultation. HEART: Regular rate and rhythm. BREASTS: Without mass or discharge. Axillary exam is negative for adenopathy. BACK: Negative for CVA tenderness. ABDOMEN: Soft, nontender, without palpable masses. PELVIC: External genitalia, there is mild atrophy and the external genitalia is within normal limits. Vagina appears normal with mild atrophy. There is no evidence of prolapse. There is no unusual discharge. Bimanual examination is negative for mass or tenderness. Rectovaginal exam is negative for mass or tenderness and is Hemoccult negative. EXTREMITIES: Nontender. IMPRESSION: 68-year-old menopausal female, status post ISAAC/BSO for benign reasons with normal gynecologic examination. PLAN: 1. Pap smears have been discontinued. 2. Self breast examination was discussed. We have also reviewed symptoms of inflammatory breast cancer. 3. Screening mammogram will be done today. 4. Osteoporosis prevention was discussed. She states she has had a normal bone density test about 3 to 4 years ago. She will plan on repeating this after about 5 years. 5. She will discuss with her PCP when she is due for a colonoscopy. MMODL / IJN: [id number] /
== END ==
LOC: WWCWWP 14:08
PROVIDERS: ATTEND Obstetrics & Gynecology

== ENCOUNTER 2024-12-01 10:07 | Day surgery (SDC) | payer MEDICARE, OTHER ==
[~2024-12-01 10:07] MED LIST changes: -LACTATED RINGERS 1,000 ML IV SCH; +LIDOCAINE 1% (10MG/ML) FOR IV START INTRADERMA PRN
[2024-12-01] MEDS: IV FLUID CONTINUATION 1,000 ML IV ONE (12:31)
[2024-12-01 12:41] VITALS: TEMP 97.2
[2024-12-01] MEDS: LACTATED RINGERS 1,000 ML IV SCH (12:42)
[2024-12-01] MEDS ORDERED: PROPOFOL 10 MG/ML 20 ML VIAL IV ONE (13:07)
--- NOTE | 2024-12-01 13:26 | P.PCN ---
Date of Procedure: 12/01/24 Procedure(s) Performed: BRIEF HISTORY: Patient is a 69-year-old pleasant white female scheduled for an elective colonoscopy as a part of screening for colon cancer. PROCEDURE PERFORMED: Colonoscopy with biopsy. PREOPERATIVE DIAGNOSIS: Screening for colon cancer. IV sedation per Anesthesia. PROCEDURE: After informed consent was obtained, the patient, was brought into the endoscopy unit. IV sedation was administered by Anesthesia under continuous monitoring. Digital rectal examination was normal. Initially the Olympus CF-160 flexible video colonoscope was then inserted in the rectum, gradually advanced into the cecum without any difficulty. Careful examination was performed as the scope was gradually being withdrawn. Ileocecal valve and the appendiceal orifice were visualized and appeared normal. Prep was fair. In the base of the cecum there was a 3 mm and 4 mm polyp that was removed by cold biopsy.. Mucosa of the cecum, ascending colon, transverse colon, descending colon, sigmoid colon, and rectum appeared normal. Scattered sigmoid diverticulosis. Retroflexion was performed in the rectum and small internal hemorrhoids were seen. The patient tolerated the procedure well. IMPRESSION: 3 mm and 4 mm cecal biopsies post cold biopsy Scattered sigmoid diverticulosis Small internal hemorrhoids RECOMMENDATIONS: Findings of this examination were discussed with the patient as well as her family. She was advised to follow-up with the biopsy results. If the biopsy reveals adenoma she can have repeat colonoscopy in 5 years..
[2024-12-01 13:34] VITALS: RESP 16
[2024-12-01 13:49] VITALS: BP 114/83; PULSE 86
== END 2024-12-01 14:08 | disposition home or self-care (01) ==
LOC: ORWHC2ENDO 10:07
PROVIDERS: ATTEND Internal Medicine Gastroenterology
DX: Z12.11 Encounter for screening for malignant neoplasm of colon (principal); D12.0 Benign neoplasm of cecum; K57.30 Diverticulosis of large intestine without perforation or abscess without bleeding; K64.8 Other hemorrhoids; I10 Essential (primary) hypertension; Z79.899 Other long term (current) drug therapy; Z79.01 Long term (current) use of anticoagulants
CPT/HCPCS: 88305; 45380; J2704

== ENCOUNTER 2025-01-20 11:18 | Emergency (ER) | payer MEDICARE ==
[2025-01-20 11:25] VITALS: RESP 18
--- NOTE | 2025-01-20 11:56 | ED ---
Skin/Abscess/FB HPI - General Chief complaint: Skin/Abscess/Foreign Body Stated complaint: Rash Time Seen by Provider: 01/20/25 11:33 Source: patient, RN notes reviewed Mode of arrival: ambulatory Limitations: no limitations - History of Present Illness Initial comments: 69-year-old female presenting to the emergency department for complaint of intermittent diffuse rash over the past 3 days. Patient states that she has experienced the rash a few times over the past 3 days that will be widespread and erythematous. She denies associated tongue, lip swelling, difficulty breathing, chest pain, palpitations, dizziness, lightheadedness. States that the rashes may do arise feels mildly itchy. She states that she is evaluated urgent care 2 days ago where she was given a dose of steroids. She denies use of new soaps, lotions, detergents, perfumes, medications, environmental exposures. - Related Data Home Medications Medication Instructions Recorded Confirmed Multivitamins, Thera [Multivitamin 1 tab PO DAILY 11/03/20 12/01/24 (formulary)] [place]-3 Fatty Acids/Fish Oil [Fish 1 each PO DAILY 11/03/20 12/01/24 Oil 1,000 mg Softgel] PARoxetine HCL 40 mg PO DAILY 11/03/20 12/01/24 Pramipexole [Mirapex] 0.5 mg PO HS 11/03/20 12/01/24 Cholecalciferol [Vitamin D3 (25 25 mcg PO DAILY 11/16/21 12/01/24 Mcg = 1000 Iu)] Vitamin B Complex 1 each PO BID 05/23/23 12/01/24 Advanced Thyroid Support 2 tab PO DAILY 11/30/24 12/01/24 Magnesium/Calcium/Zinc 1 tab PO DAILY 11/30/24 12/01/24 Metoprolol Succinate (ER) [Toprol 25 mg PO DAILY 11/30/24 12/01/24 XL] Papaya [Papaya Enzyme] 3 - 4 tab PO DAILY 11/30/24 12/01/24 Pramipexole Di-HCl [Mirapex] 1.5 mg PO HS 11/30/24 12/01/24 Rivaroxaban [Xarelto] 20 mg PO DAILY 11/30/24 12/01/24 Selenium 2 tab PO DAILY 11/30/24 12/01/24 Previous Rx's Medication Instructions Recorded Famotidine [Pepcid] 20 mg PO BID #28 tablet 01/20/25 Allergies Allergy/AdvReac Type Severity Reaction Status Date / Time No Known Allergies Allergy Verified 01/20/25 11:25 Review of Systems ROS Statement: Those systems with pertinent positive or pertinent negative responses have been documented in the HPI. ROS Other: All systems not noted in ROS Statement are negative. Past Medical History Past Medical History: Atrial Fibrillation, Osteoarthritis (OA), Thyroid Disorder Additional Past Medical History / Comment(s): Low BP, Restless Leg Syndrome. hx.osteomyelitis toes- LEGS HAVE GIVEN OUT , HX LOW BACK PAIN WITH TINGLING FEET - none now. Hypothyroidism. History of Any Multi-Drug Resistant Organisms: None Reported Past Surgical History: Back Surgery, Breast Surgery, Section, Renée cystectomy, Hysterectomy, Orthopedic Surgery Additional Past Surgical History / Comment(s): 3 sections, ISAAC/BSO 2007. Bilateral shoulder surgery, carpal tunnel surgery bilateral wrists, toe surgery for bone spurs, right breast biopsy, lasik eye surgery. PAIN CLINIC PROCEDURE, EYELID SX. colonoscopy 2018, back surgery w/ rods and screws December 2023 Past Anesthesia/Blood Transfusion Reactions: No Reported Reaction Past Psychological History: Depression Smoking Status: Never smoker Past Alcohol Use History: None Reported Past Drug Use History: Marijuana - Past Family History Mother Family Medical History: Cancer Additional Family Medical History / Comment(s): Liver and breast cancer. . Maternal aunt had breast and cervical cancer. Father Family Medical History: Diabetes Mellitus Additional Family Medical History / Comment(s): . Sister(s) Family Medical History: Diabetes Mellitus General Exam Limitations: no limitations General appearance: alert, in no apparent distress Neck exam: Present: normal inspection. Absent: tenderness, meningismus, lymphadenopathy Respiratory exam: Present: normal lung sounds bilaterally. Absent: respiratory distress, wheezes, rales, rhonchi, stridor Cardiovascular Exam: Present: regular rate, normal rhythm, normal heart sounds. Absent: systolic murmur, diastolic murmur, rubs, gallop, clicks GI/Abdominal exam: Present: soft, normal bowel sounds. Absent: distended, tenderness, guarding, rebound, rigid Extremities exam: Present: normal inspection, full ROM, normal capillary refill. Absent: tenderness, pedal edema, joint swelling, calf tenderness Back exam: Present: normal inspection Skin exam: Present: warm, dry, intact, normal color. Absent: rash Course Vital Signs 01/20/25 01/20/25 11:21 12:35 Temperature 98 F 98.2 F Pulse Rate 68 66 Respiratory 18 18 Rate Blood Pressure 114/75 114/76 O2 Sat by Pulse 100 98 Oximetry Medical Decision Making - Medical Decision Making Was pt. sent in by a medical professional or institution (TRISTIAN Franco, MA[employer], urgent care, hospital, or care home...) When possible be specific @ -No Did you speak to anyone other than the patient for history (EMS, parent, family, police, friend...)? What history was obtained from this source @ -No Did you review nursing and triage notes (agree or disagree)? Why? @ -I reviewed and agree with nursing and triage notes Were old charts reviewed (outside hosp., previous admission, EMS record, old EKG, old radiological studies, urgent care reports/EKG's, care home records)? Report findings @ -No old charts were reviewed Differential Diagnosis (chest pain, altered mental status, abdominal pain women, abdominal pain men, vaginal bleeding, weakness, fever, dyspnea, syncope, headache, dizziness, GI bleed, back pain, seizure, CVA, palpatations, mental health, musculoskeletal)? @ -Urticaria, contact dermatitis, anaphylaxis, angioedema, this list not all inclusive EKG interpreted by me (3pts min.). @ -none X-rays interpreted by me (1pt min.). @ -None done CT interpreted by me (1pt min.). @ -None done U/S interpreted by me (1pt. min.). @ -None done What testing was considered but not performed or refused? (CT, X-rays, U/S, labs)? Why? @ -None What meds were considered but not given or refused? Why? @ -None Did you discuss the management of the patient with other professionals (professionals i.e. TRISTIAN Franco, [employer], lab, RT, psych nurse, sr. social media & mobile manager, tax lawyer, teacher, sailing officer, case supervisor)? Give summary @ -No Was smoking cessation discussed for >3mins.? @ -No Was critical care preformed (if so, how long)? @ -No Were there social determinants of health that impacted care today? How? (Homelessness, low income, unemployed, alcoholism, drug addiction, transportation, low edu. Level, literacy, decrease access to med. care, alf, rehab)? @ -No Was there de-escalation of care discussed even if they declined (Discuss DNR or withdrawal of care, Hospice)? DNR status @ -No What co-morbidities impacted this encounter? (DM, HTN, Smoking, COPD, CAD, Cancer, CVA, ARF, Chemo, Hep., AIDS, mental health diagnosis, sleep apnea, morbid obesity)? @ -None Was patient admitted / discharged? Hospital course, mention meds given and route, prescriptions, significant lab abnormalities, going to OR and other pertinent info. @ -Discharge. 69-year-old female presenting to the emergency room with complaints of a rash. Overall patient is well-appearing in no signs of acute distress or respiratory distress and initial vitals are stable. Physical examination complete with no evidence of acute rash or skin irritation. Patient provided with allergic cocktail and instructed to take Benadryl Pepcid at home if symptoms arise. Recommend follow with a primary care provider. Case discussed with Dr. Brooks Undiagnosed new problem with uncertain prognosis? @ -No Drug Therapy requiring intensive monitoring for toxicity (Heparin, Nitro, Insulin, Cardizem)? @ -No Were any procedures done? @ -No Diagnosis/symptom? @ -Urticaria/acute rash Acute, or Chronic, or Acute on Chronic? @ -Acute Uncomplicated (without systemic symptoms) or Complicated (systemic symptoms)? @ -Uncomplicated Side effects of treatment? @ -No Exacerbation, Progression, or Severe Exacerbation? @ -No Poses a threat to life or bodily function? How? (Chest pain, [place], [place], pneumonia, PE, COPD, DKA, ARF, appy, cholecystitis, CVA, Diverticulitis, Homicidal, Suicidal, threat to staff... and all critical care pts) @ -No Disposition Clinical Impression: Rash Disposition: HOME SELF-CARE Condition: Good Instructions (If sedation given, give patient instructions): Acute Rash (ED) Additional Instructions: Please return to the Emergency Department if symptoms worsen or any other concerns. Prescriptions: Famotidine [Pepcid] 20 mg PO BID #28 tablet Is patient prescribed a controlled substance at d/c from ED?: No Referrals: Mckenzie Christina DO [Primary Care Provider] - 1-2 days Time of Disposition: 11:55
[2025-01-20] MEDS: FAMOTIDINE 20 MG TAB PO STA (12:02)
[2025-01-20] MEDS: methylPREDNISolone SOD SUCCI 125 MG/2 ML VIAL IM ONE (12:02)
[2025-01-20] MEDS: diphenhydrAMINE 50 MG CAP PO STA (12:02)
[2025-01-20 12:36] VITALS: BP 114/76; PULSE 66; TEMP 98.2
== END 2025-01-20 12:36 | disposition home or self-care (01) ==
LOC: EC 11:18
DX: L50.9 Urticaria, unspecified (principal)
CPT/HCPCS: 99282; 96372; J2919